=== PATIENT | female | born 1930 | race African-American/Black ===

== ENCOUNTER 2016-11-10 01:05 | Inpatient (IN) | payer MEDICARE ==
[~2016-11-10] VITALS: Ht 165.1 cm; Wt 85.0 kg
[2016-11-10] VITALS (18 sets, daily range): BP systolic 140–262; BP diastolic 65–126; PULSE 48–97; RESP 16–20; TEMP 97.6–99; O2SAT 95–100
[~2016-11-10 01:05] MED LIST: ADAL60TA9 PO; HYDR-2768 PO; K-TA10TA5 PO; LEVO100T60 PO; LISI-357 PO; METO100T PO; PRAV20TA67 PO; PRED20 PO; TAB-TAB PO; VITA100018 PO; ZITH500T PO
[2016-11-10] MEDS ORDERED: HYDR25TA5 PO (01:24)
[2016-11-10] MEDS ORDERED: LEVO.125 PO (01:24)
[2016-11-10] MEDS ORDERED: POTA1TAB4 PO (01:24)
[2016-11-10] MEDS ORDERED: LISI40TA PO (01:24)
[2016-11-10] MEDS ORDERED: METO100T PO (01:24)
[2016-11-10] MEDS ORDERED: PRAV40TA2 PO (01:24)
--- NOTE | 2016-11-10 01:36 | PD ---
HPI Chief Complaint: Hypertension Time Seen by Provider: 01:27 Travel History International Travel<30 days: No Contact w/Intl Traveler<30days: No Traveled to known affect area: No History of Present Illness HPI 86-year-old female here for evaluation of elevated blood pressure. The patient has history of hypertension and is on metoprolol, hydrochlorothiazide, and lisinopril. She was recently started on nifedipine, however she states that this medication made her nauseous and she stopped taking it. She happened to check her blood pressure this evening and noticed it was elevated. She is completely asymptomatic. No chest pain or dyspnea. No headache. No paresthesias or motor deficits. PFSH Past Medical History Anemia: Yes Arthritis: Yes Atrial Fibrillation: Yes Heart Rhythm Problems: Yes (A FIB) Cardiovascular Problems: Yes (HTN) High Cholesterol: Yes Diminished Hearing: No Hypertension: Yes Thyroid Disease: Yes (HYPERTHYROIDISM-GRAVES) Tetanus Vaccination: < 5 Years Influenza Vaccination: No PNEUMOCCOCAL Vaccine (Year): 2010 Menopausal: Yes Past Surgical History Abdominal Surgery: Yes (GALLBLADDER 1994) Cholecystectomy: Yes Social History Alcohol Use: No Tobacco Use: No Substance Use: No Allergies-Medications (Allergen,Severity, Reaction): Coded Allergies: Aspirin (Verified Allergy, Severe, CHEST PAIN, 11/10/16) Sulfa (Verified Allergy, Severe, RASH, 11/10/16) Penicillin (Verified Adverse Reaction, Severe, DIARRHEA, 11/10/16) Uncoded Allergies: CITRUS (Allergy, Severe, Anaphylaxis, 11/23/10) Reported Meds & Prescriptions Reported Meds & Active Scripts Active Reported Metoprolol Tartrate 100 Mg Tab 100 Mg PO BID Hydrochlorothiazide 25 Mg Tab 25 Mg PO DAILY Lisinopril 40 Mg Tab 40 Mg PO DAILY K-Tab (Potassium Chloride) 20 Meq Tab 20 Meq PO BID Pravastatin 40 Mg Tab 40 Mg PO DAILY Synthroid (Levothyroxine Sodium) 125 Mcg Tab 125 Mcg PO DAILY Review of Systems Except as stated in HPI: all other systems reviewed are Neg Physical Exam Narrative GENERAL: Pleasant, well-developed, well-nourished, comfortable, no acute distress. SKIN: Warm and dry. No rash. HEAD: Atraumatic. Normocephalic. EYES: Pupils equal and round. No scleral icterus. No injection or drainage. ENT: Mucous membranes pink and moist. NECK: Trachea midline. No JVD. CARDIOVASCULAR: Bradycardic, rate 50, regular. RESPIRATORY: No accessory muscle use. Clear to auscultation. Breath sounds equal bilaterally. GASTROINTESTINAL: Abdomen soft, non-tender, nondistended. MUSCULOSKELETAL: No obvious deformities. No clubbing. No cyanosis. No edema. NEUROLOGICAL: Awake and alert. No obvious cranial nerve deficits. Motor grossly within normal limits. Normal speech. No focal deficits. PSYCHIATRIC: Appropriate mood and affect; insight and judgment normal. Data Data Last Documented VS Vital Signs Date Time Temp Pulse Resp B/P Pulse Ox O2 Delivery O2 Flow Rate FiO2 11/10/16 02:22 52 18 184/83 100 Room Air 11/10/16 02:03 98.7 Orders Basic Metabolic Panel (Bmp) (11/10/16 01:32) Complete Blood Count With Diff (11/10/16 01:32) Iv Access Insert/Monitor (11/10/16 01:32) Ecg Monitoring (11/10/16 01:32) Oximetry (11/10/16 01:32) Sodium Chloride 0.9% Flush (Ns Flush) (11/10/16 01:45) Hydralazine Inj (Apresoline Inj) (11/10/16 01:45) Sodium Chlorid 0.9% 500 Ml Inj (Ns 500 M (11/10/16 02:45) Sodium Chlor 0.9% 1000 Ml Inj (Ns 1000 M (11/10/16 02:43) Labs Laboratory Tests Test 11/10/16 01:40 White Blood Count 6.2 TH/MM3 Red Blood Count 4.04 MIL/MM3 Hemoglobin 11.5 GM/DL Hematocrit 34.4 % Mean Corpuscular Volume 85.1 FL Mean Corpuscular Hemoglobin 28.4 PG Mean Corpuscular Hemoglobin 33.4 % Concent Red Cell Distribution Width 14.9 % Platelet Count 238 TH/MM3 Mean Platelet Volume 10.0 FL Neutrophils (%) (Auto) 48.9 % Lymphocytes (%) (Auto) 37.6 % Monocytes (%) (Auto) 10.0 % Eosinophils (%) (Auto) 2.7 % Basophils (%) (Auto) 0.8 % Neutrophils # (Auto) 3.0 TH/MM3 Lymphocytes # (Auto) 2.3 TH/MM3 Monocytes # (Auto) 0.6 TH/MM3 Eosinophils # (Auto) 0.2 TH/MM3 Basophils # (Auto) 0.1 TH/MM3 CBC Comment DIFF FINAL Differential Comment Sodium Level 139 MEQ/L Potassium Level 3.5 MEQ/L Chloride Level 104 MEQ/L Carbon Dioxide Level 29.0 MEQ/L Anion Gap 6 MEQ/L Blood Urea Nitrogen 27 MG/DL Creatinine 2.95 MG/DL Estimat Glomerular Filtration 18 ML/MIN Rate Random Glucose 97 MG/DL Calcium Level 9.0 MG/DL MDM Medical Decision Making Medical Screen Exam Complete: Yes Emergency Medical Condition: Yes Medical Record Reviewed: Yes Differential Diagnosis Hypertensive urgency, hypertensive crisis, uncontrolled blood pressure Narrative Course Initial vital signs showed heart rate 48, blood pressure 262/126, pulse ox 95% on room air, oral temp of 98.1F. The patient was given a dose of hydralazine with improvement in blood pressure to 184/83, however blood pressure again increased to 201/90. The patient remains asymptomatic. CBC is remarkable for hemoglobin 11.5, hematocrit 34.4, otherwise unremarkable. BMP is remarkable for BUN 27, creatinine 2.95, GFR 18. The patient is aware of renal insufficiency and states that she is followed by community administrator Dr. Solitario. She does not know her baseline creatinine. The last labs in our system are from 2011 and show BUN 18, creatinine 1.45, GFR 41. The patient was made aware of all findings. Given labile blood pressure as well as apparent acute on chronic renal insufficiency, she'll be admitted for overnight observation and nephrology consultation. Case discussed with [facility] hospitalist Dr. Lezama. The patient will be admitted to their service under Dr. Bonilla. Diagnosis Primary Impression: Uncontrolled hypertension Additional Impression: Acute on chronic renal insufficiency Admitting Information Admitting Physician Requests: Observation Hans Hernandez MD Nov 10, 2016 01:36
[2016-11-10] MEDS ORDERED: SODIUM CHLORIDE 0.9% FLUSH 5 ML FLUSH IVF PRN ×2 (01:45→03:00)
[2016-11-10] MEDS ORDERED: hydrALAZINE HCL 20 MG/ML VIAL IV PUSH ONE ×2 (01:45→12:30)
[2016-11-10 02:05] LABS: BASOPHIL # 0.1 TH/MM3 (0-0.2); BASOPHIL % 0.8 % (0.0-2.0); EOSINOPHIL # 0.2 TH/MM3 (0-0.4); EOSINOPHIL % 2.7 % (0.0-4.0); HEMATOCRIT 34.4 % (35.0-46.0); HEMO FLAGS DIFF FINAL; LYMPH % 37.6 % (9.0-44.0); LYMPHOCYTE # 2.3 TH/MM3 (1.0-4.8); MEAN CELL VOLUME 85.1 FL (80.0-100.0); MEAN CORPUSCULAR HEMOGLOBIN 28.4 PG (27.0-34.0); MEAN CORPUSCULAR HGB CONC 33.4 % (32.0-36.0); NEUT % 48.9 % (16.0-70.0); PLATELET COUNT 238 TH/MM3 (150-450); RED BLOOD COUNT 4.04 MIL/MM3 (4.00-5.30); RED CELL DISTRIBUTION WIDTH 14.9 % (11.6-17.2); WHITE BLOOD COUNT 6.2 TH/MM3 (4.0-11.0)
[2016-11-10 02:26] LABS: POTASSIUM 3.5 MEQ/L (3.5-5.1)
[2016-11-10] MEDS ORDERED: SODIUM CHLOR 0.9% 1000 ML INJ 1,000 ML IV SCH (02:43)
[2016-11-10] MEDS ORDERED: SODIUM CHLORID 0.9% 500 ML INJ 500 ML IV ONE (02:45)
[2016-11-10] MEDS: SODIUM CHLORIDE 0.9% FLUSH 5 ML FLUSH IVF SCH ×2 (09:13→20:44)
[2016-11-10] MEDS ORDERED: ENALAPRILAT 1.25 MG/ML VIAL IV PUSH PRN (12:30)
[2016-11-10] MEDS: cloNIDine HCL 0.1 MG TAB PO PRN (13:38)
--- NOTE | 2016-11-10 13:54 | HHI.HP ---
HPI Service [facility] Hospitalists Primary Care Physician Anton Reyes M.D. Admission Diagnosis uncontrolled hypertension, acute on chronic renal insufficiency Chief Complaint: Elevated BP Travel History International Travel<30 Days: No Contact w/Intl Traveler <30 Da: No Traveled to Known Affected Are: No History of Present Illness Ms. Perez is a pleasant 86 y/o female with HTN, Diabetes, CKD, stage IV, and hypothyroidism. She [place] [facility] [place] for evaluation of elevated blood pressure. The patient takes Metoprolol 100mg po BID, HCTZ 25mg po daily, and Lisinopril 40mg po daily. She was recently started on Nifedipine , however she states that this medication made her nauseous and she stopped taking it. Yesterday evening the pt happened to check her blood pressure and noticed it was elevated. Her vital signs on arrival showed heart rate 48, blood pressure 262/126, pulse ox 95% on room air, oral temp of 98.1F. The patient was given a dose of hydralazine with improvement in blood pressure to 184/83, however blood pressure again increased to 201/90. Pt was admitted for observation for her persistently elevated BP. There was also concern about possible acute on chronic renal failure. Pts baseline Cr is 2.49. At admission her Cr was 2.95. She has been completely asymptomatic. Denies any chest pain, palpitations, headache, dizziness, or SOB. Review of Systems Constitutional: DENIES: Fever, Chills, Dizziness Respiratory: DENIES: Shortness of breath Cardiovascular: DENIES: Chest pain, Palpitations, Lower Extremity Edema Gastrointestinal: DENIES: Abdominal pain, Nausea, Vomiting Genitourinary: DENIES: Dysuria Musculoskeletal: DENIES: Back pain, Neck pain Integumentary: DENIES: Rash Neurologic: DENIES: Headache, Localized weakness, Paresthesias Past Family Social History Past Medical History Diabetes mellitus Atrial fibrillation CKD, stage 4 Chronic anemia Vitamin B12 deficiency Hypothyroidism s/p ablation Past Surgical History Cholecystectomy Thyroid ablation Reported Medications Metoprolol Tartrate 100 Mg PO BID Hydrochlorothiazide 25 Mg PO DAILY Lisinopril 40 Mg PO DAILY K-Tab 20 Meq PO BID Pravastatin 40 Mg PO DAILY Synthroid 125 Mcg PO DAILY Allergies: Coded Allergies: Aspirin (Verified Allergy, Severe, CHEST PAIN, 11/10/16) Sulfa (Verified Allergy, Severe, RASH, 11/10/16) Penicillin (Verified Adverse Reaction, Severe, DIARRHEA, 11/10/16) Uncoded Allergies: CITRUS (Allergy, Severe, Anaphylaxis, 11/23/10) Family History Noncontributory Social History Denies any tobacco, alcohol or illicit drug use Physical Exam Vital Signs Vital Signs Date Time Temp Pulse Resp B/P Pulse Ox O2 Delivery O2 Flow Rate FiO2 11/10/16 12:55 98.0 97 18 97 11/10/16 08:25 50 16 202/94 99 Room Air 11/10/16 06:00 48 18 190/88 100 Room Air 11/10/16 04:39 98.1 49 18 194/91 100 Room Air 11/10/16 04:17 99 21 11/10/16 02:22 52 18 184/83 100 Room Air 11/10/16 02:03 98.7 48 18 201/96 100 Room Air 11/10/16 01:17 48 18 97 Room Air 11/10/16 01:13 98.1 49 20 248/119 11/10/16 01:08 97.6 48 18 262/126 95 Room Air Physical Exam GENERAL: This is a well-nourished, well-developed patient, in no apparent distress. HEENT: Atraumatic. Normocephalic. No temporal or scalp tenderness. No scleral icterus. Airway patent. NECK: Trachea midline, supple, nontender. CARDIO: Regular. RESP: CTA bilaterally. No wheezes, rales, or rhonchi. ABD: +BS, soft, non-tender, nondistended. EXT: Extremities without clubbing, cyanosis, or edema. NEURO: Awake and alert. Motor and sensory grossly within normal limits. Normal speech. Laboratory Laboratory Tests Test 11/10/16 01:40 White Blood Count 6.2 Red Blood Count 4.04 Hemoglobin 11.5 Hematocrit 34.4 Mean Corpuscular Volume 85.1 Mean Corpuscular Hemoglobin 28.4 Mean Corpuscular Hemoglobin 33.4 Concent Red Cell Distribution Width 14.9 Platelet Count 238 Mean Platelet Volume 10.0 Neutrophils (%) (Auto) 48.9 Lymphocytes (%) (Auto) 37.6 Monocytes (%) (Auto) 10.0 Eosinophils (%) (Auto) 2.7 Basophils (%) (Auto) 0.8 Neutrophils # (Auto) 3.0 Lymphocytes # (Auto) 2.3 Monocytes # (Auto) 0.6 Eosinophils # (Auto) 0.2 Basophils # (Auto) 0.1 CBC Comment DIFF FINAL Differential Comment Sodium Level 139 Potassium Level 3.5 Chloride Level 104 Carbon Dioxide Level 29.0 Anion Gap 6 Blood Urea Nitrogen 27 Creatinine 2.95 Estimat Glomerular Filtration 18 Rate Random Glucose 97 Calcium Level 9.0 Result Diagram: 11/10/1613911/10/16139 Septic Shock Reassessment Heart: Regular rate and rhythm Lungs: Clear Skin: Warm Peripheral Pulses: Bounding Right Radial Bounding Left Radial Bounding Right Popliteal Bounding Left Popliteal Bounding Right Dorsalis Pedis Bounding Left Dorsalis Pedis Bounding Right Posterior Tibial Bounding Left Posterior Tibial Assessment and Plan Problem List: (1) Uncontrolled hypertension Status: Acute Plan: - Pt admitted with uncontrolled HTN with systolic BP over 200 - Pt has been given Hydralazine 10mg IV x 2 doses and was just given Clonidine 0.1mg as well. - Pt takes Metoprolol 100mg po BID, Lisinopril 40mg po daily, and HCTZ 25mg po daily at home typically - She has been asymptomatic. - Pt has been notably bradycardic in the ER with HR in the 40-50. Await telemetry and decide about resuming Metoprolol - Hold HCTZ and Lisinopril at this time - Start Hydralazine 10mg po Q8H, first dose at 1800 - Vasotec and Clonidine PRN (2) CKD (chronic kidney disease) stage 4, GFR 15-29 ml/min Status: Chronic Plan: - Pt with stage 4 CKD secondary to diabetes and HTN - Labs at admission are slightly higher than baseline, Cr 2.49 - Encourage oral intake - Monitor (3) Diabetes mellitus type 2, diet-controlled Status: Chronic Plan: - Pt is not on any medications at home. - Low dose NovoLog SSI - Accu checks (4) Hypothyroidism Status: Chronic Plan: - Check TSH/free T4 - Resume home meds (5) Paroxysmal atrial fibrillation Status: Acute Plan: - Pt with a hx of paroxysmal A. fib - Holter Monitor (11/2010) --> NSR, frequent PAC/Occasional PVCs, brief runs of nonsustained atrial tachycardia and sinus bradycardia down to 41 BPM. - Telemetry Assessment and Plan Patient examined. Assessment and plan formulated with Fide Barboza PA-C. I agree with the above. Fide Barboza Nov 10, 2016 13:54 Fabian Bonilla DO Nov 17, 2016 20:44
[2016-11-10] MEDS ORDERED: DEXTROSE 50% IN WATER 50 ML VIAL(D50) IV PUSH PRN (14:30)
[2016-11-10] MEDS ORDERED: GLUCAGON 1 MG/ML VIAL OTHER PRN (14:30)
[2016-11-10 15:02] LABS: FREE T4 1.16 NG/DL (0.76-1.46)
[2016-11-10] MEDS: INSULIN ASPART SUPPLEMENTAL SCALE SQ SCH ×2 (16:00→20:44)
[2016-11-10] MEDS: hydrALAZINE HCL 10 MG TAB PO SCH ×2 (17:03→20:44)
--- NOTE | 2016-11-10 22:44 | EKG ---
Date Performed: 11/10/2016 Time Performed: 00:17:50 PTAGE: 86 years EKG: SINUS BRADYCARDIA MARKED LEFT AXIS DEVIATION PATTERN CONSISTENT WITH PULMONARY DISEASE ABNO RMAL ECG PREVIOUS TRACING : 08/25/2012 13.30 DOCTOR: Joseluis Spencer Interpretating Date/Time 11/10/2016 22:42:11
[2016-11-11] VITALS (13 sets, daily range): BP systolic 128–228; BP diastolic 63–100; PULSE 47–75; RESP 19–20; TEMP 96.3–98.3; O2SAT 95–98
[2016-11-11] MEDS: cloNIDine HCL 0.1 MG TAB PO PRN ×2 (04:08→14:54)
[2016-11-11] MEDS: hydrALAZINE HCL 10 MG TAB PO SCH ×3 (06:37→21:34)
[2016-11-11] MEDS: INSULIN ASPART SUPPLEMENTAL SCALE SQ SCH ×4 (06:37→21:00)
[2016-11-11] MEDS: LEVOTHYROXINE SODIUM 125 MCG TAB PO SCH (06:37)
[2016-11-11 07:06] LABS: BICARBONATE 28.7 MEQ/L (21.0-32.0); MAGNESIUM 2.2 MG/DL (1.5-2.5)
[2016-11-11 07:10] LABS: AUTOMATED NEUTROPHIL # 3.3 TH/MM3 (1.8-7.7); BASOPHIL % 0.6 % (0.0-2.0); EOSINOPHIL # 0.1 TH/MM3 (0-0.4); EOSINOPHIL % 1.4 % (0.0-4.0); HEMATOCRIT 30.4 % (35.0-46.0); HEMO FLAGS DIFF FINAL; LYMPH % 29.2 % (9.0-44.0); LYMPHOCYTE # 1.7 TH/MM3 (1.0-4.8); MEAN CELL VOLUME 85.7 FL (80.0-100.0); MEAN CORPUSCULAR HEMOGLOBIN 28.1 PG (27.0-34.0); MEAN CORPUSCULAR HGB CONC 32.8 % (32.0-36.0); MONO % 12.6 % (0.0-8.0); NEUT % 56.2 % (16.0-70.0); PLATELET COUNT 173 TH/MM3 (150-450); RED BLOOD COUNT 3.55 MIL/MM3 (4.00-5.30); RED CELL DISTRIBUTION WIDTH 14.8 % (11.6-17.2); WHITE BLOOD COUNT 5.9 TH/MM3 (4.0-11.0)
[2016-11-11 07:27] LABS: POTASSIUM 2.8 MEQ/L (3.5-5.1)
[2016-11-11] MEDS ORDERED: POTASSIUM CHLORIDE 20 MEQ CONTROLLED RELEASE TAB PO ONE (07:45)
[2016-11-11] MEDS: SODIUM CHLORIDE 0.9% FLUSH 5 ML FLUSH IVF SCH (08:09)
[2016-11-11] MEDS: PRAVASTATIN SOD 40 MG TAB PO SCH (08:10)
--- NOTE | 2016-11-11 10:43 | HHI.PR ---
Subjective Remarks Pt reports that she slept well last night No new complaints Denies any dizziness or headache BP is still quite elevated Objective Vitals Vital Signs Date Time Temp Pulse Resp B/P Pulse Ox O2 Delivery O2 Flow Rate FiO2 11/11/16 09:15 47 11/11/16 08:19 98 21 11/11/16 06:26 189/85 11/11/16 03:40 97.9 54 20 190/91 96 11/11/16 00:19 98.2 49 19 175/84 96 11/10/16 20:00 54 11/10/16 19:30 98.4 53 19 140/65 96 11/10/16 18:22 53 11/10/16 18:03 54 149/67 11/10/16 15:45 51 11/10/16 15:44 190/84 11/10/16 14:53 99.0 51 18 181/81 98 11/10/16 13:55 51 207/93 11/10/16 13:47 51 18 224/96 11/10/16 12:55 98.0 97 18 97 Result Diagram: 11/11/16 0550 11/11/16 0550 Other Results Laboratory Tests Test 11/10/16 11/11/16 01:40 05:50 White Blood Count 6.2 TH/MM3 5.9 TH/MM3 Red Blood Count 4.04 MIL/MM3 3.55 MIL/MM3 Hemoglobin 11.5 GM/DL 10.0 GM/DL Hematocrit 34.4 % 30.4 % Mean Corpuscular Volume 85.1 FL 85.7 FL Mean Corpuscular Hemoglobin 28.4 PG 28.1 PG Mean Corpuscular Hemoglobin 33.4 % 32.8 % Concent Red Cell Distribution Width 14.9 % 14.8 % Platelet Count 238 TH/MM3 173 TH/MM3 Mean Platelet Volume 10.0 FL 9.3 FL Neutrophils (%) (Auto) 48.9 % 56.2 % Lymphocytes (%) (Auto) 37.6 % 29.2 % Monocytes (%) (Auto) 10.0 % 12.6 % Eosinophils (%) (Auto) 2.7 % 1.4 % Basophils (%) (Auto) 0.8 % 0.6 % Neutrophils # (Auto) 3.0 TH/MM3 3.3 TH/MM3 Lymphocytes # (Auto) 2.3 TH/MM3 1.7 TH/MM3 Monocytes # (Auto) 0.6 TH/MM3 0.7 TH/MM3 Eosinophils # (Auto) 0.2 TH/MM3 0.1 TH/MM3 Basophils # (Auto) 0.1 TH/MM3 0.0 TH/MM3 CBC Comment DIFF FINAL DIFF FINAL Differential Comment Sodium Level 139 MEQ/L 143 MEQ/L Potassium Level 3.5 MEQ/L 2.8 MEQ/L Chloride Level 104 MEQ/L 106 MEQ/L Carbon Dioxide Level 29.0 MEQ/L 28.7 MEQ/L Anion Gap 6 MEQ/L 8 MEQ/L Blood Urea Nitrogen 27 MG/DL 25 MG/DL Creatinine 2.95 MG/DL 2.81 MG/DL Estimat Glomerular Filtration 18 ML/MIN 19 ML/MIN Rate Random Glucose 97 MG/DL 93 MG/DL Calcium Level 9.0 MG/DL 8.4 MG/DL Free Thyroxine 1.16 NG/DL Thyroid Stimulating Hormone 4.120 uIU/ML 3rd Gen Magnesium Level 2.2 MG/DL Objective Remarks General: NAD, AAOx3 Chest: CTA bilaterally Cardiac: Bradycardic, regular Abd: +BS, soft ND/NT Ext: No edema A/P Problem List: (1) Uncontrolled hypertension Status: Acute Plan: - Pt admitted with uncontrolled HTN with systolic BP over 200 - Pt takes Metoprolol 100mg po BID, Lisinopril 40mg po daily, and HCTZ 25mg po daily at home typically - She has been asymptomatic. - Pt has been notably bradycardic in the ER with HR in the 40-50. Metoprolol held - Hold HCTZ and Lisinopril at this time due to worsening renal function from baseline - Pt was started on Hydralazine 10mg po Q8H - Vasotec and Clonidine PRN - Pt still with continued elevated BP over 180 systolic this morning - Increase Hydralazine to 20mg Q8H and add Clonidine patch - Pt noted to have continued bradycardia on telemetry with intermittent tachycardia. - Place Holter monitor - Consult Cardiology - Make pt full admission and transfer (2) CKD (chronic kidney disease) stage 4, GFR 15-29 ml/min Status: Chronic Plan: - Pt with stage 4 CKD secondary to diabetes and HTN - Labs at admission are slightly higher than baseline, Cr 2.49 - Cr 2.81 today - Encourage oral intake - Monitor (3) Diabetes mellitus type 2, diet-controlled Status: Chronic Plan: - Pt is not on any medications at home. - Low dose NovoLog SSI - Accu checks (4) Hypothyroidism Status: Chronic Plan: - TSH 4.12/free T4 1.16 - Cont. home meds (5) Paroxysmal atrial fibrillation Status: Acute Plan: - Pt with a hx of paroxysmal A. fib after thyroid surgery - Holter Monitor (11/2010) --> NSR, frequent PAC/Occasional PVCs, brief runs of nonsustained atrial tachycardia and sinus bradycardia down to 41 BPM. - Telemetry Assessment and Plan Patient examined. Assessment and plan formulated with Fide Barboza PA-C. I agree with the above. Fide Barboza Nov 11, 2016 10:43 Fabian Bonilla DO Nov 17, 2016 20:44
[2016-11-11] MEDS ORDERED: cloNIDine HCL 0.3 MG/24 HR PATCH TD SCH (11:00)
[2016-11-11] MEDS: POTASSIUM CHLORIDE 20 MEQ CONTROLLED RELEASE TAB PO SCH ×2 (14:54→16:00)
[2016-11-11] MEDS ORDERED: hydrALAZINE HCL 20 MG/ML VIAL IV PUSH PRN (17:15)
[2016-11-11] MEDS: amLODIPine BESYLATE 5 MG TAB PO SCH (17:47)
--- NOTE | 2016-11-11 20:32 | MB ---
cc: HARIS FARRIS M.D., VINCENT G. DO CARRATT, EVAN D. M.D. DATE OF CONSULTATION: 11/11/2016. REASON FOR CONSULTATION: Uncontrolled hypertension, possible tachybrady syndrome. PRIMARY CARE PHYSICIAN: Dr. Anton Farris. HISTORY OF PRESENT ILLNESS: Aminta Perez is a pleasant 86-year-old female who presented to the [facility] Emergency Room on November 09, 2016 for evaluation for elevated blood pressure. She states that her blood pressure has been extensively high in the past and her primary care doctor was changing some of her medications. He started her on nifedipine, which made her nauseous, so she stopped taking it. The night before presenting to the emergency room, she checked her blood pressure and noticed it was elevated and felt that she should come into the emergency room for evaluation of this. On speaking to her, she states that she does not get chest pain, shortness of breath, lightheadedness or syncopal episodes. It was also noted by Dr. Bonilla that on telemetry she has episodes of tachyarrhythmia which appear to be short runs of atrial fibrillation in-between episodes of bradycardia with heart rates in the 50s. 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 I was asked to evaluate the patient for possible permanent pacemaker as well as her uncontrolled hypertension. PAST MEDICAL HISTORY: 1. Diabetes mellitus. 2. 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 3. Chronic kidney disease stage IV 4. Chronic anemia. 5. Vitamin B12 deficiency. 6. Hypothyroidism. PAST SURGICAL HISTORY: 1. Cholecystectomy. 2. Thyroid ablation. ALLERGIES: 1. ASPIRIN. 2. SULFA. 3. PENICILLIN. MEDICATIONS: 1. Metoprolol tartrate 100 milligrams twice a day. 2. Hydrochlorothiazide 25 milligrams daily. 3. Lisinopril 40 milligrams daily. 4. Potassium 20 milliequivalents twice a day. 5. Pravastatin 40 milligrams daily. 6. Synthroid 125 micrograms daily. 7. Previously started on nifedipine at an unknown dose for which the patient said this made her nauseous and is no longer taking. FAMILY HISTORY: Denies premature coronary artery disease or sudden cardiac within the family. SOCIAL HISTORY: Denies tobacco abuse, alcohol or drug abuse. REVIEW OF SYSTEMS Fourteen systems were reviewed including osteopathic with pertinent positives and negatives as above; otherwise negative. PHYSICAL EXAMINATION VITAL SIGNS: Temperature 96.8, heart rate 47, blood pressure 142/77, respirations 98% on room air. GENERAL: In general the patient appears well and in no acute distress. Awake, alert and oriented times three. HEENT: Extraocular muscles intact. Mucous membranes moist. NECK: The neck is supple. No JVD at 45 degrees. No carotid bruits heard bilaterally. Carotid upstroke is brisk in nature. HEART: Bradycardic but regular rhythm. Mid-peaking crescendo / decrescendo murmur 2/6 to the right sternal border. LUNGS: Clear to auscultation bilaterally. No wheezes, rales or rhonchi. ABDOMEN: Soft, nontender, nondistended. No organomegaly noted. EXTREMITIES: Trace edema bilaterally. Femoral and distal pulses are intact bilaterally. NEUROLOGIC: No focal deficits. SKIN: Warm, dry and intact. OSTEOPATHIC: Osteopathically, mild lordosis, no kyphoscoliosis, or paraspinal tender points. LAB WORK: Hemoglobin 10.0, hematocrit 30.4, platelets 173,000. Potassium 2.8, BUN 25, creatinine 2.81. TSH 4.12, free T4 1.16. Electrocardiogram (November 10, 2016 at 1750): Sinus bradycardia, left axis deviation, probable left ventricular hypertrophy with secondary S-T-T wave changes. IMPRESSION: 1. Uncontrolled hypertension. 2. Chronic kidney disease stage IV with possible acute kidney injury. 3. 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 4. Hypokalemia. 5. Anemia. 6. Hypothyroidism. 7. Type 2 diabetes mellitus, diet-controlled. RECOMMENDATIONS: 1. Ms. Perez originally came in with a blood pressure of 262/126 and has since been worked down below 180/90. I agree with stopping her lisinopril and hydrochlorothiazide due to her possible acute kidney injury. 2. I would continue to increase her hydralazine as possible to help with blood pressure. 3. We may we may need to avoid clonidine as much as we can as this has been shown to possibly cause bradycardia. 4. Agree with replacing electrolytes as hypokalemia can cause bradycardia. 5. Will check a 2-D echo which will most likely show aortic stenosis and left ventricular hypertrophy, but we will also look at her left ventricular function, cardiac structure and possible other valvulopathies. 6. I spoke to her extensively about a permanent pacemaker, and at this time she does not feel that she would like one, but is willing to listen to our electrophysiology physician, Dr. Spencer, about consideration. 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 Further recommendations will be made based on the hospital course. Thank you for allowing me to see Aminta Perez. If there are any questions, please do not hesitate to call. Raimundo Adam DO JOHN/FANY /4:54 PM /8:14 PM
[2016-11-12] VITALS (9 sets, daily range): BP systolic 118–181; BP diastolic 58–85; PULSE 51–88; RESP 18–20; TEMP 97–98.2; O2SAT 96–98
[2016-11-12] MEDS: hydrALAZINE HCL 10 MG TAB PO SCH ×4 (01:01→21:34)
[2016-11-12] MEDS: SODIUM CHLORIDE 0.9% FLUSH 5 ML FLUSH IVF SCH ×3 (01:02→21:00)
[2016-11-12] MEDS: LEVOTHYROXINE SODIUM 125 MCG TAB PO SCH (06:20)
[2016-11-12] MEDS: INSULIN ASPART SUPPLEMENTAL SCALE SQ SCH ×4 (06:20→21:00)
[2016-11-12 08:52] LABS: BICARBONATE 24.6 MEQ/L (21.0-32.0); MAGNESIUM 2.2 MG/DL (1.5-2.5); POTASSIUM 3.4 MEQ/L (3.5-5.1)
[2016-11-12] MEDS: PRAVASTATIN SOD 40 MG TAB PO SCH (09:00)
[2016-11-12] MEDS: amLODIPine BESYLATE 5 MG TAB PO SCH (09:12)
--- NOTE | 2016-11-12 12:55 | HHI.PR ---
Subjective Remarks No new clinical complaints. Objective Vitals Vital Signs Date Time Temp Pulse Resp B/P Pulse Ox O2 Delivery O2 Flow Rate FiO2 11/12/16 12:12 98.2 66 18 118/58 96 11/12/16 08:37 97.0 88 18 134/74 98 11/12/16 06:16 181/80 11/12/16 04:02 97.5 56 20 134/66 96 11/12/16 00:41 98.2 60 20 169/79 96 11/11/16 19:55 59 11/11/16 19:19 98.3 58 20 128/65 95 11/11/16 16:23 142/77 11/11/16 16:00 97.0 65 20 228/100 97 11/11/16 14:45 188/96 Result Diagram: 11/11/16 0550 11/12/16 0730 Objective Remarks General: NAD, AAOx3 Chest: CTA bilaterally Cardiac: Bradycardic, regular Abd: +BS, soft ND/NT Ext: No edema A/P Problem List: (1) Uncontrolled hypertension Status: Acute Plan: - comgmt with Cardiology - Pt admitted with uncontrolled HTN with systolic BP over 200 - Pt takes Metoprolol 100mg po BID, Lisinopril 40mg po daily, and HCTZ 25mg po daily at home typically - She has been asymptomatic. - Pt has been notably bradycardic in the ER with HR in the 40-50. Metoprolol held - Hold HCTZ and Lisinopril at this time due to worsening renal function from baseline - hydralazine 20mg q8h - norvasc 5mg daily - telemetry: HR NSR 60-80, improved from admission - await holter - anticipate d/c to home in next 1-2 days (2) CKD (chronic kidney disease) stage 4, GFR 15-29 ml/min Status: Chronic Plan: - Pt with stage 4 CKD secondary to diabetes and HTN - Labs at admission are slightly higher than baseline, Cr 2.49 - Cr 2.81 (11/11/16), Cr 3.08 (11/12/16) - obtain Renal US - trial of IVFs - repeat BMP in AM - Pt follows with Dr. Solitario (3) Diabetes mellitus type 2, diet-controlled Status: Chronic Plan: - Pt is not on any medications at home. - Low dose NovoLog SSI - Accu checks - all blood sugar readings are less than 150 - will stopp accu checks (4) Hypothyroidism Status: Chronic Plan: - TSH 4.12/free T4 1.16 - Cont. home meds (5) Paroxysmal atrial fibrillation Status: Acute Plan: - Pt with a hx of paroxysmal A. fib after thyroid surgery - Holter Monitor (11/2010) --> NSR, frequent PAC/Occasional PVCs, brief runs of nonsustained atrial tachycardia and sinus bradycardia down to 41 BPM. - Telemetry Fabian Bonilla DO Nov 12, 2016 12:55 Fabian Bonilla DO Nov 12, 2016 12:55
--- NOTE | 2016-11-12 13:26 | RADRPT ---
EXAM DATE/TIME: 11/12/2016 13:01 [facility] COMPARISON: CHEST SINGLE AP, August 25, 2012, 5:53. INDICATIONS : Cough. MEDICAL HISTORY : None. SURGICAL HISTORY : None. ENCOUNTER: Initial ACUITY: 2 days PAIN SCORE: 0/10 LOCATION: Bilateral chest FINDINGS: Portable AP view of the chest demonstrates mildly enlarged cardiac silhouette with tortuous descendin g aorta. No effusion, consolidation, or pneumothorax is visualized. The bones and soft tissues demons trate no acute abnormality. CONCLUSION: Stable chest x-ray. No acute finding is identified. Rolando Peace MD on November 12, 2016 at 13:24 Board Certified Radiologist. This report was verified electronically.
[2016-11-12] MEDS: 1/2 NS + KCL 20 MEQ INJ 1,000 ML IV SCH (14:10)
--- NOTE | 2016-11-12 15:30 | RADRPT ---
EXAM DATE/TIME: 11/12/2016 14:34 [facility] COMPARISON: No previous studies available for comparison. INDICATIONS : Increased BUN and creatinine. MEDICAL HISTORY : Hyperthyroidism. Hypercholesterolemia. Arthritis. Grave's disease. Dizziness. Hypertension. A-fib. Diabetes. Anemia. SURGICAL HISTORY : Cholecystectomy. ENCOUNTER: Initial ACUITY: 1 day PAIN SCORE: 0/10 LOCATION: Bilateral flank. MEASUREMENTS: RIGHT KIDNEY: 8.2 x 4.0 x 4.0 cm LEFT KIDNEY: 9.2 x 3.8 x 3.5 cm FINDINGS: Both kidneys appear small and echogenic. There is a 1.5 cm cyst seen at the upper right kidney. No hydronephrosis is identified. The bladder is decompressed. CONCLUSION: Small echogenic kidneys consistent with medical renal disease. Rolando Pettit MD on November 12, 2016 at 15:07 Board Certified Radiologist. This report was verified electronically.
--- NOTE | 2016-11-12 19:27 | PD.CARD.PN ---
Subjective Subjective Remarks No chest pain, no shortness of breath Objective Medications Current Medications Medications (Trade) Dose Ordered Sig/Kirby Route Start Time Stop Time Status Last Admin (NS Flush) 2 ml UNSCH PRN IVF 11/10/16 01:45 11/10/16 13:38 (NS Flush) 2 ml BID IVF 11/10/16 09:00 11/12/16 09:11 (NS Flush) 2 ml UNSCH PRN IVF 11/10/16 03:00 (Catapres) 0.1 mg Q6H PRN PO 11/10/16 12:30 11/11/16 14:54 (Vasotec Inj) 1.25 mg Q6H PRN IV PUSH 11/10/16 12:30 11/10/16 17:03 (Synthroid) 125 mcg DAILY@06 PO 11/11/16 06:00 11/12/16 06:20 (Pravachol) 40 mg DAILY PO 11/11/16 09:00 11/12/16 09:00 (D50w (Vial) Inj) 25 ml UNSCH PRN IV PUSH 11/10/16 14:30 (Glucagon Inj) 1 mg UNSCH PRN OTHER 11/10/16 14:30 (Apresoline) 20 mg Q8HR PO 11/11/16 14:00 11/12/16 14:09 Miscellaneous Information 1 Q7D T-DERMAL 11/18/16 10:00 (Norvasc) 5 mg DAILY PO 11/11/16 18:00 11/12/16 09:12 Hydralazine HCl 10 mg 10 mg Q4H PRN IV PUSH 11/11/16 17:15 (12 NS + KCl 20 Meq Inj) 1,000 ml @ 84 mls/hr [id number] IV 11/12/16 13:00 11/12/16 14:10 Vital Signs / I&O Vital Signs Date Time Temp Pulse Resp B/P Pulse Ox O2 Delivery O2 Flow Rate FiO2 11/12/16 18:40 51 11/12/16 15:45 97.9 63 18 144/68 96 11/12/16 12:12 98.2 66 18 118/58 96 11/12/16 08:37 97.0 88 18 134/74 98 11/12/16 06:16 181/80 11/12/16 04:02 97.5 56 20 134/66 96 11/12/16 00:41 98.2 60 20 169/79 96 11/11/16 19:55 59 Physical Exam GENERAL: NAD, AAOx3 SKIN: Warm and dry. HEAD: Atraumatic. Normocephalic. EYES: Pupils equal and round. No scleral icterus. No injection or drainage. ENT: No nasal bleeding or discharge. Mucous membranes pink and moist. NECK: Trachea midline. No JVD. CARDIOVASCULAR: Regular rate and rhythm. 2/6 mid-peaking crescendo-decrescendo RESPIRATORY: No accessory muscle use. Clear to auscultation. Breath sounds equal bilaterally. GASTROINTESTINAL: Abdomen soft, non-tender, nondistended. Hepatic and splenic margins not palpable. MUSCULOSKELETAL: Extremities without clubbing, cyanosis, or edema. No obvious deformities. NEUROLOGICAL: Awake and alert. No obvious cranial nerve deficits. Motor grossly within normal limits. Five out of 5 muscle strength in the arms and legs. Normal speech. PSYCHIATRIC: Appropriate mood and affect; insight and judgment normal. Laboratory Laboratory Tests Test 11/12/16 07:30 Sodium Level 140 MEQ/L Potassium Level 3.4 MEQ/L Chloride Level 106 MEQ/L Carbon Dioxide Level 24.6 MEQ/L Anion Gap 9 MEQ/L Blood Urea Nitrogen 27 MG/DL Creatinine 3.08 MG/DL Estimat Glomerular Filtration 17 ML/MIN Rate Random Glucose 75 MG/DL Calcium Level 8.5 MG/DL Magnesium Level 2.2 MG/DL Assessment and Plan Problem List: (1) Uncontrolled hypertension (2) Acute on chronic renal insufficiency (3) Paroxysmal atrial fibrillation (4) Hypothyroidism (5) Diabetes mellitus type 2, diet-controlled Assessment and Plan 1) Blood pressure better controlled at this time 2) Try to avoid Clonidine as it can cause bradycardia 3) Still some short episodes of possible atrial fibrillation, mostly sinus rhythm/sinus margarita, asymptomatic 4) Will have Dr. Spencer see the patient about tachy-margarita syndrome, although she doesn't think she would like a Raimundo Ruvalcaba DO Nov 12, 2016 19:27
[2016-11-13] VITALS (8 sets, daily range): BP systolic 125–200; BP diastolic 63–103; PULSE 60–108; RESP 18–20; TEMP 97.5–98.3; O2SAT 95–98
[2016-11-13] MEDS: 1/2 NS + KCL 20 MEQ INJ 1,000 ML IV SCH ×3 (00:55→21:59)
[2016-11-13] MEDS: cloNIDine HCL 0.1 MG TAB PO PRN (00:56)
[2016-11-13 05:15] LABS: AUTOMATED NEUTROPHIL # 3.4 TH/MM3 (1.8-7.7); BASOPHIL % 0.7 % (0.0-2.0); EOSINOPHIL # 0.3 TH/MM3 (0-0.4); EOSINOPHIL % 4.1 % (0.0-4.0); HEMATOCRIT 33.3 % (35.0-46.0); HEMO FLAGS DIFF FINAL; LYMPH % 33.3 % (9.0-44.0); LYMPHOCYTE # 2.3 TH/MM3 (1.0-4.8); MEAN CELL VOLUME 85.7 FL (80.0-100.0); MEAN CORPUSCULAR HEMOGLOBIN 27.8 PG (27.0-34.0); MEAN CORPUSCULAR HGB CONC 32.4 % (32.0-36.0); MONO % 11.2 % (0.0-8.0); NEUT % 50.7 % (16.0-70.0); PLATELET COUNT 195 TH/MM3 (150-450); RED BLOOD COUNT 3.88 MIL/MM3 (4.00-5.30); WHITE BLOOD COUNT 6.8 TH/MM3 (4.0-11.0)
[2016-11-13] MEDS: LEVOTHYROXINE SODIUM 125 MCG TAB PO SCH (05:21)
[2016-11-13] MEDS: hydrALAZINE HCL 10 MG TAB PO SCH ×3 (05:21→21:59)
[2016-11-13 05:40] LABS: BICARBONATE 23.8 MEQ/L (21.0-32.0); MAGNESIUM 2.2 MG/DL (1.5-2.5); POTASSIUM 3.4 MEQ/L (3.5-5.1)
[2016-11-13] MEDS: INSULIN ASPART SUPPLEMENTAL SCALE SQ SCH (07:00)
--- NOTE | 2016-11-13 07:02 | MB ---
cc: GAYLE COLBERT MD DATE OF CONSULTATION 11/12/2016 REASON FOR CONSULTATION Acute on chronic kidney disease Stage IV. HISTORY OF PRESENT ILLNESS This is an 86-year-old female with a history of hypertension and CKD Stage IV with hypothyroidism. The patient follows up with Dr. Ada Solitario for her renal issues and last saw him apparently in August. At that time she was told her kidney function was low; however, there was no discussion of dialysis at that point. The patient apparently has a baseline creatinine near 2.49; however, this was obtained from the history in the chart. There are no recent creatinine values available here. The patient was admitted on November 09 for evaluation of hypertension. The patient takes her blood pressure at home and at home she had been taking metoprolol 100 b.i.d., hydrochlorothiazide 25 daily and lisinopril 40 mg daily. She presented with a blood pressure of 260/120, over the last several days she has been managed by the hospitalist service and her blood pressure significantly improved to a level between the 130s and 140s systolic and 50s to 60s diastolic. She reports she is feeling fine at this point has no acute complaints. 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 She was seen by Cardiology and a pacemaker was suggested. However, the patient is refusing pacemaker placement at this time and reports she has friends who have had trouble with theirs in the past. Regarding her renal function, her creatinine upon presentation here was 2.8 and it to a level of 3.0. Given the rise in creatinine, IV fluids were started today with one-half normal saline plus 40 mEq of potassium chloride at 40 cc/hour. At this point the patient is receiving IV fluids and Nephrology was consulted for further evaluation. She reports she is feeling fine otherwise with no acute complaints. REVIEW OF SYSTEMS No chest pains. No shortness of breath. No diarrhea. No constipation. No nausea or vomiting, no diarrhea. No dizziness or loss of consciousness. Otherwise review of systems is negative. PAST MEDICAL HISTORY 1. CKD Stage IV followed up with Dr. Solitario. 2. Atrial fibrillation. 3. Hypertension. 4. Anemia. 5. Vitamin B12 deficiency. 6. Hypothyroidism with history of ablation. SURGICAL HISTORY 1. Cholecystectomy. 2. Thyroid ablation MEDICATIONS PRIOR TO ADMISSION 1. Metoprolol 100 b.i.d. 2. Hydrochlorothiazide 25 daily. 3. Lisinopril 40 mg daily. 4. Potassium supplements 20 mEq p.o. b.i.d. 5. Pravastatin 40 mg daily. 6. Synthroid 125 mcg daily. ALLERGIES ASPIRIN. SULFA. PENICILLIN. CITRUS ALLERGY. FAMILY HISTORY Noncontributory. SOCIAL HISTORY No alcohol, tobacco or drug use. PHYSICAL EXAMINATION VITAL SIGNS: At time of evaluation, blood pressure 144/68, temperature 97.9, pulse 63, respiratory rate 18, pulse ox 96% on room air. GENERAL: Awake, alert, oriented, in no apparent acute distress. HEENT/NECK: Soft supple. No lymphadenopathy. CARDIAC: Regular rate and rhythm. No murmurs, rubs, gallops. PULMONARY: Lungs clear to auscultation bilaterally. ABDOMEN: Soft, nontender, nondistended. EXTREMITIES: No edema. LABORATORY FINDINGS White count 5.9, hemoglobin 10.0, hematocrit 30.4 with platelet count of 173. Sodium 140, potassium 3.4, chloride 106, bicarb 24.6, BUN 27, creatinine 3.0, glucose of 75. ASSESSMENT AND PLAN 1. Acute kidney injury on CKD Stage IV. The patient has reported baseline creatinine of 2.49 and I am unclear where this came from as it is not available in the hospital labs; however, this was noted from the previous notes. The patient does have a history of CKD Stage IV and she does follow up closely with Dr. Solitario. She apparently last saw him in August and she was told she had severe kidney disease. However, there was no indication for dialysis at that time. At this point the patient is resting comfortably. Her creatinine upon presentation was 2.8 and elevated up to a level of 3.0. I suspect this may be some hemodynamic changes secondary to her blood pressure issues. Her blood pressure is better controlled now. She has been given a trial of IV fluids at this point. There is no signs of any volume overload otherwise. Agree with IV fluids as administered. At this point the patient is on one-half normal saline with 40 mEq of potassium chloride at 40 cc/hour. Continue to monitor for any signs of improvement in renal function. Her creatinine is otherwise stable and there is no indications for any hemodialysis at this point. A renal ultrasound was ordered as well and we will go ahead and check a fractional excretion of sodium to assess for any prerenal versus renal etiologies for acute on chronic kidney disease. In addition, renal ultrasound was ordered for further evaluation. 2. Hypertension. The patient presented with systolic blood pressure in the 260s. Her systolic blood pressure is down to the 130s. She presented with management on a beta boni and LILLIAN inhibitor. She also had findings of apparent tachybrady syndrome with heart rate that dropped to the 40s. At this point, blood pressure management is only with hydralazine and Norvasc. Her blood pressure is significantly improved at this point. Continue with medications at this time and continue to monitor. 3. Hypothyroidism. Continue Synthroid. 4. Anemia. The patient has a hemoglobin of 10, appears stable. Continue to monitor closely. 5. Atrial fibrillation. The patient has a history of paroxysmal atrial fibrillation. 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 She was seen with Cardiology and a pacemaker was offered; however, the patient initially refused this. She is otherwise stable at this point. Continue to monitor. MD ANALISA Martinez/RHONA /6:02 PM /6:38 AM MTDDesiree
--- NOTE | 2016-11-13 08:39 | HHI.PR ---
Subjective Remarks No new complaints. Pts BP still fluctuating quite high but also periods of normal range readings. Pt has been asymptomatic. Denies any chest pain, SOB, palpitations. Objective Vitals Vital Signs Date Time Temp Pulse Resp B/P Pulse Ox O2 Delivery O2 Flow Rate FiO2 11/13/16 05:15 97.6 108 18 170/86 95 11/13/16 00:36 98.2 107 20 200/103 98 11/12/16 21:14 98.2 70 20 147/85 98 11/12/16 20:00 60 11/12/16 18:40 51 11/12/16 15:45 97.9 63 18 144/68 96 11/12/16 12:12 98.2 66 18 118/58 96 11/12/16 08:37 97.0 88 18 134/74 98 Result Diagram: 11/13/16 0457 11/13/16 0457 Other Results Laboratory Tests Test 11/11/16 11/12/16 11/13/16 13:31 07:30 04:57 Potassium Level 3.3 MEQ/L 3.4 MEQ/L 3.4 MEQ/L Sodium Level 140 MEQ/L 140 MEQ/L Chloride Level 106 MEQ/L 107 MEQ/L Carbon Dioxide Level 24.6 MEQ/L 23.8 MEQ/L Anion Gap 9 MEQ/L 9 MEQ/L Blood Urea Nitrogen 27 MG/DL 31 MG/DL Creatinine 3.08 MG/DL 2.99 MG/DL Estimat Glomerular Filtration 17 ML/MIN 18 ML/MIN Rate Random Glucose 75 MG/DL 90 MG/DL Calcium Level 8.5 MG/DL 8.6 MG/DL Magnesium Level 2.2 MG/DL 2.2 MG/DL White Blood Count 6.8 TH/MM3 Red Blood Count 3.88 MIL/MM3 Hemoglobin 10.8 GM/DL Hematocrit 33.3 % Mean Corpuscular Volume 85.7 FL Mean Corpuscular Hemoglobin 27.8 PG Mean Corpuscular Hemoglobin 32.4 % Concent Red Cell Distribution Width 15.0 % Platelet Count 195 TH/MM3 Mean Platelet Volume 9.1 FL Neutrophils (%) (Auto) 50.7 % Lymphocytes (%) (Auto) 33.3 % Monocytes (%) (Auto) 11.2 % Eosinophils (%) (Auto) 4.1 % Basophils (%) (Auto) 0.7 % Neutrophils # (Auto) 3.4 TH/MM3 Lymphocytes # (Auto) 2.3 TH/MM3 Monocytes # (Auto) 0.8 TH/MM3 Eosinophils # (Auto) 0.3 TH/MM3 Basophils # (Auto) 0.0 TH/MM3 CBC Comment DIFF FINAL Differential Comment Imaging Last Impressions Renal Ultrasound 11/12/16 0000 Signed Impressions: Service Date/Time: Saturday, November 12, 2016 14:34 - CONCLUSION: Small echogenic kidneys consistent with medical renal disease. Rolando Pettit MD Chest X-Ray 11/12/16 0000 Signed Impressions: Service Date/Time: Saturday, November 12, 2016 13:01 - CONCLUSION: Stable chest x-ray. No acute finding is identified. Rolando Peace MD Objective Remarks General: NAD, AAOx3 Chest: CTA bilaterally Cardiac: Bradycardic, regular Abd: +BS, soft ND/NT Ext: No edema A/P Problem List: (1) Uncontrolled hypertension Status: Acute Plan: - comgmt with Cardiology - Pt admitted with uncontrolled HTN with systolic BP over 200 - Pt takes Metoprolol 100mg po BID, Lisinopril 40mg po daily, and HCTZ 25mg po daily at home typically - She has been asymptomatic. - Pt has been notably bradycardic in the ER with HR in the 40-50. Metoprolol held - Hold HCTZ and Lisinopril at this time due to worsening renal function from baseline - Cardiology following. - Pt is currently on Hydralazine 20mg q8h and Norvasc 5mg daily but BP is still fluctuating quite high but with periods of normal BPs. - Telemetry: HR NSR 60-80, but periods of tachyarrhythmias - Await Holter - Dr. Spencer consulted - anticipate d/c to home in next 1-2 days (2) CKD (chronic kidney disease) stage 4, GFR 15-29 ml/min Status: Chronic Plan: - Pt with stage 4 CKD secondary to diabetes and HTN - Labs at admission are slightly higher than baseline, Cr 2.49 - Cr 2.81 (11/11/16) --> Cr 3.08 (11/12/16) --> Cr 2.99 (11/13/16) - Renal US --> Small echogenic kidneys consistent with medical renal disease - Trial of IVFs - Repeat BMP in AM - Pt follows with Dr. Solitario (3) Diabetes mellitus type 2, diet-controlled Status: Chronic Plan: - Pt is not on any medications at home. - all blood sugar readings are less than 150 - will stop accuchecks and SSI per pts request (4) Hypothyroidism Status: Chronic Plan: - TSH 4.12/free T4 1.16 - Cont. home meds (5) Paroxysmal atrial fibrillation Status: Acute Plan: - Pt with a hx of paroxysmal A. fib after thyroid surgery - Holter Monitor (11/2010) --> NSR, frequent PAC/Occasional PVCs, brief runs of nonsustained atrial tachycardia and sinus bradycardia down to 41 BPM. - Telemetry Assessment and Plan Patient examined. Assessment and plan formulated with Fide Barboza PA-C. I agree with the above. BP more stable. she is not interested currenlty in pacemaker or dialysis If stable tomorrow then d/c home. I discussed with Dr Spencer who is at bedside and pt refusing consultation for pacemaker so we will cancel it. Fide Barboza Nov 13, 2016 08:39 Jacques Duff MD Nov 13, 2016 19:50
[2016-11-13] MEDS: PRAVASTATIN SOD 40 MG TAB PO SCH (08:51)
[2016-11-13] MEDS: amLODIPine BESYLATE 5 MG TAB PO SCH (08:51)
[2016-11-13] MEDS: SODIUM CHLORIDE 0.9% FLUSH 5 ML FLUSH IVF SCH ×2 (08:51→21:57)
[2016-11-13] MEDS ORDERED: POTASSIUM CHLORIDE 20 MEQ CONTROLLED RELEASE TAB PO ONE (09:00)
[2016-11-13] MEDS ORDERED: POTASSIUM CHLORIDE 10 MEQ CAP PO ONE (14:00)
--- NOTE | 2016-11-13 14:16 | PD.CARD.PN ---
Subjective Subjective Remarks No chest pain, no shortness of breath, up and ambulating Objective Medications Current Medications Medications (Trade) Dose Ordered Sig/Kirby Route Start Time Stop Time Status Last Admin (NS Flush) 2 ml UNSCH PRN IVF 11/10/16 01:45 11/10/16 13:38 (NS Flush) 2 ml BID IVF 11/10/16 09:00 11/12/16 21:00 (NS Flush) 2 ml UNSCH PRN IVF 11/10/16 03:00 (Catapres) 0.1 mg Q6H PRN PO 11/10/16 12:30 11/13/16 00:56 (Vasotec Inj) 1.25 mg Q6H PRN IV PUSH 11/10/16 12:30 11/10/16 17:03 (Synthroid) 125 mcg DAILY@06 PO 11/11/16 06:00 11/13/16 05:21 (Pravachol) 40 mg DAILY PO 11/11/16 09:00 11/13/16 08:51 (D50w (Vial) Inj) 25 ml UNSCH PRN IV PUSH 11/10/16 14:30 (Glucagon Inj) 1 mg UNSCH PRN OTHER 11/10/16 14:30 (Apresoline) 20 mg Q8HR PO 11/11/16 14:00 11/13/16 05:21 Miscellaneous Information 1 Q7D T-DERMAL 11/18/16 10:00 (Norvasc) 5 mg DAILY PO 11/11/16 18:00 11/13/16 08:51 Hydralazine HCl 10 mg 10 mg Q4H PRN IV PUSH 11/11/16 17:15 (12 NS + KCl 20 Meq Inj) 1,000 ml @ 84 mls/hr [id number] IV 11/12/16 13:00 11/13/16 00:55 Vital Signs / I&O Vital Signs Date Time Temp Pulse Resp B/P Pulse Ox O2 Delivery O2 Flow Rate FiO2 11/13/16 12:13 98.3 73 20 135/69 98 11/13/16 10:24 70 11/13/16 08:32 97.9 84 20 125/76 98 11/13/16 05:15 97.6 108 18 170/86 95 11/13/16 00:36 98.2 107 20 200/103 98 11/12/16 21:14 98.2 70 20 147/85 98 11/12/16 20:00 60 11/12/16 18:40 51 11/12/16 15:45 97.9 63 18 144/68 96 Physical Exam GENERAL: NAD, AAOx3 SKIN: Warm and dry. HEAD: Atraumatic. Normocephalic. EYES: Pupils equal and round. No scleral icterus. No injection or drainage. ENT: No nasal bleeding or discharge. Mucous membranes pink and moist. NECK: Trachea midline. No JVD. CARDIOVASCULAR: Regular rate and rhythm. 2/6 mid-peaking crescendo-decrescendo RESPIRATORY: No accessory muscle use. Clear to auscultation. Breath sounds equal bilaterally. GASTROINTESTINAL: Abdomen soft, non-tender, nondistended. Hepatic and splenic margins not palpable. MUSCULOSKELETAL: Extremities without clubbing, cyanosis, or edema. No obvious deformities. NEUROLOGICAL: Awake and alert. No obvious cranial nerve deficits. Motor grossly within normal limits. Five out of 5 muscle strength in the arms and legs. Normal speech. PSYCHIATRIC: Appropriate mood and affect; insight and judgment normal. Laboratory Laboratory Tests Test 11/13/16 04:57 White Blood Count 6.8 TH/MM3 Red Blood Count 3.88 MIL/MM3 Hemoglobin 10.8 GM/DL Hematocrit 33.3 % Mean Corpuscular Volume 85.7 FL Mean Corpuscular Hemoglobin 27.8 PG Mean Corpuscular Hemoglobin 32.4 % Concent Red Cell Distribution Width 15.0 % Platelet Count 195 TH/MM3 Mean Platelet Volume 9.1 FL Neutrophils (%) (Auto) 50.7 % Lymphocytes (%) (Auto) 33.3 % Monocytes (%) (Auto) 11.2 % Eosinophils (%) (Auto) 4.1 % Basophils (%) (Auto) 0.7 % Neutrophils # (Auto) 3.4 TH/MM3 Lymphocytes # (Auto) 2.3 TH/MM3 Monocytes # (Auto) 0.8 TH/MM3 Eosinophils # (Auto) 0.3 TH/MM3 Basophils # (Auto) 0.0 TH/MM3 CBC Comment DIFF FINAL Differential Comment Sodium Level 140 MEQ/L Potassium Level 3.4 MEQ/L Chloride Level 107 MEQ/L Carbon Dioxide Level 23.8 MEQ/L Anion Gap 9 MEQ/L Blood Urea Nitrogen 31 MG/DL Creatinine 2.99 MG/DL Estimat Glomerular Filtration 18 ML/MIN Rate Random Glucose 90 MG/DL Calcium Level 8.6 MG/DL Magnesium Level 2.2 MG/DL Assessment and Plan Problem List: (1) Uncontrolled hypertension (2) Acute on chronic renal insufficiency (3) Paroxysmal atrial fibrillation (4) Hypothyroidism (5) Diabetes mellitus type 2, diet-controlled Assessment and Plan 1) Blood pressure better controlled at this time, still with some elevated episodes... 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
[2016-11-13] MEDS ORDERED: amLODIPine BESYLATE 5 MG TAB PO ONE (14:30)
--- NOTE | 2016-11-13 16:50 | HHI.NPPN ---
Subjective History of Present Illness 86 year old with CKD 4 who has A fib chf Review of Systems General Constitutional: Fatigue Objective Data Data Vital Signs Date Time Temp Pulse Resp B/P Pulse Ox O2 Delivery O2 Flow Rate FiO2 11/13/16 12:13 98.3 73 20 135/69 98 11/13/16 10:24 70 11/13/16 08:32 97.9 84 20 125/76 98 11/13/16 05:15 97.6 108 18 170/86 95 11/13/16 00:36 98.2 107 20 200/103 98 11/12/16 21:14 98.2 70 20 147/85 98 11/12/16 20:00 60 11/12/16 18:40 51 -: 11/13/16 0457 11/13/16456 Physical Exam General Appearance: Well Developed, Well Nourished Neck Neck Exam: Neck Supple Pulmonary Resp Exam: Decreased Bases Cardiology CV Exam: Arrhythmia Gastrointestinal/Abdomen GI Exam: Soft, Non-Tender, Bowel Sounds Present Extremeties Extremities Exam: Trace Edema Assessment/Plan Problem List: (1) CKD (chronic kidney disease) stage 4, GFR 15-29 ml/min Plan: she has advance kidney disease seen in office in September and offered to consider dialysis, she refused to consider and continue to do so follow as out pt once dc diabetes control.HTN Control optimize (2) Paroxysmal atrial fibrillation (3) Diabetes mellitus type 2, diet-controlled (4) Uncontrolled hypertension Ada Solitario MD Nov 13, 2016 16:50
--- NOTE | 2016-11-13 18:46 | HM ---
Date Performed: 11/11/2016 Time Performed: 13:06:00 HOOKUP DATE: 11/11/16 01:06:00 PM Sat ANALYSIS START TIME: 11/11/2016 1:11:00 PM ANALYSIS END TIME: 11/12/2016 1:15:00 PM PATIENT AGE: 86 PATIENT HEIGHT: 65 PATIENT WEIGHT: 187 DRUG LIST PATIENT DIAGNOSIS: HTN TEST NARRATIVE: The patient's average heart rate was 66 BPM. Heart rates greater than 120 B PM were noted < 1% of the time. Heart rates less than 50 BPM were noted 3% of the time. No pause s exceeding 2.0 seconds were noted. 2216 ventricular ectopics, which represented 2% of the total beat count, were noted. The highest ventricular ectopic frequency occurred from 08:00 AM to 09:00 AM Sun. During this time 355 VE(s) occurred. Ventricular ectopics were observed as 2174 isolated beat (s), as 18 couplet(s) and as 2 run(s). 1167 supraventricular ectopics, which represented 1% of th e total beat count, were noted. The highest supraventricular ectopic frequency occurred from 06:00 A M to 07:00 AM Sun. During this time 126 SVE(s) occurred. In channel 1, a single episode of ST de pression (defined as -1.0 mm or more) occurred at 05:25:55 PM Sat with a maximum depression of -1.7 m m. No episodes of ST depression (defined as -1.0 mm or more) were noted in channel 2. No episodes o f ST depression (defined as -1.0 mm or more) were noted in channel 3. No diary events were repor yaritza by the patient. TEST INTERPRETATION: Underlined rhythm is normal sinus. Patient with 2000 PVC's over a 24 hour p eriod and many PAC's. There were several episodes of short runs of supraventricular rhythm which appe ars to be short runs of atrial fibrillation. There were also significant runs of PVC's and supraventr icular rhythm. CONCLUSION: Multiple onsets of PVC's, short runs of nonsustained ventricular tachycard ia, multiple short runs of atrlal fibrillation and also runs of atrial tachycardia. Signed by : Alton Graves
--- NOTE | 2016-11-13 20:06 | EC ---
Study Study Date:11/13/2016 STUDY CONCLUSIONS SUMMARY - Left ventricle: The cavity size was normal. Wall thickness was normal. Systolic function was normal. The estimated ejection fraction was 60%. Wall motion was normal; there were no regional wall motion abnormalities. - Aortic valve: Mildly calcified annulus. Trileaflet; normal thickness leaflets. Trace regurgitation. - Left atrium: The atrium was mildly dilated. If LV function is below 40, please consider prescribing an ACEI or ARB or document rationale for non-use. PROCEDURE DATA STUDY STATUS: Elective. Procedure: Transthoracic echocardiography. Image quality was good. Scanning was performed from the parasternal, apical, and subcostal acoustic windows. Study completion: The patient tolerated the procedure well. Transthoracic echocardiography. M-mode, complete 2D, complete spectral Doppler, and color Doppler. Patient status: Inpatient. CARDIAC ANATOMY LEFT VENTRICLE: The cavity size was normal. Wall thickness was normal. Systolic function was normal. The estimated ejection fraction was 60%. Wall motion was normal; there were no regional wall motion abnormalities. AORTIC VALVE: Mildly calcified annulus. Trileaflet; normal thickness leaflets. Doppler: Transvalvular velocity was within the normal range. There was no stenosis. Trace regurgitation. Valve area: 1.69cm^2 (Vmax). Peak gradient: 20mm Hg (S). AORTA: Aortic root: The aortic root was normal in size. MITRAL VALVE: Structurally normal valve. Doppler: Transvalvular velocity was within the normal range. There was no evidence for stenosis. No regurgitation. Peak gradient: 2mm Hg (D). LEFT ATRIUM: The atrium was mildly dilated. RIGHT VENTRICLE: The cavity size was normal. Wall thickness was normal. PULMONIC VALVE: Doppler: Transvalvular velocity was within the normal range. There was no evidence for stenosis. No regurgitation. TRICUSPID VALVE: Structurally normal valve. Doppler: Transvalvular velocity was within the normal range. Trace regurgitation. PULMONARY ARTERY: The main pulmonary artery was normal-sized. Systolic pressure was within the normal range. RIGHT ATRIUM: The atrium was normal in size. PERICARDIUM: There was no pericardial effusion. SYSTEMIC VEINS: Inferior vena cava: The vessel was normal in size. BASIC MEASUREMENTS ADULT Normal Left ventricle LV internal dimension, ED, chordal level, *37.4 mm 43-52 PLAX LV internal dimension, ES, chordal level, 29.2 mm 23-38 PLAX Fractional shortening, chordal level, PLAX *22 % >29 LV posterior wall thickness, ED 10.8 mm IVS/LVPW ratio, ED 0.83 <1.3 Ventricular septum Septal thickness, ED 8.99 mm Aortic valve Leaflet separation 16 mm 15-26 BASIC MEASUREMENTS ADULT Normal Aortic valve Leaflet separation 16 mm 15-26 Aorta Root diameter, ED 27 mm 20-37 Left atrium Anterior-posterior dimension, ES *46 mm 19-40 LA/aortic root ratio 1.7 DOPPLER MEASUREMENTS ADULT Normal Main pulmonary artery Pressure, S 21 mm Hg =30 Aortic valve Peak velocity, S 221 cm/s Peak gradient, S 20 mm Hg Valve area, Vmax 1.69 cm^2 Regurgitant velocity, ED 305 cm/s Regurgitant deceleration 1100 cm/s^2 Regurgitant pressure half-time 810 ms Regurgitant gradient, ED 37 mm Hg Mitral valve Peak E-wave velocity 77.5 cm/s Peak A-wave velocity 130 cm/s Deceleration time *243 ms 150-230 Peak gradient, D 2 mm Hg Peak E/A ratio 0.6 Tricuspid valve Regurgitant peak velocity 208 cm/s Peak RV-RA gradient, S 17 mm Hg Maximal regurgitant velocity 208 cm/s Systemic veins Estimated CVP 10 mm Hg Right ventricle RV pressure, S 27 mm Hg <30 Pulmonic valve Peak velocity, S 124 cm/s LEGEND: Mean values are shown as u=mean value. Asterisk (*) saucedo values outside specified normal range. Prepared and signed by Russell Simth [id number]
[2016-11-14] VITALS (8 sets, daily range): BP systolic 125–193; BP diastolic 61–100; PULSE 52–115; RESP 17–19; TEMP 97.8–99; O2SAT 97–98
[2016-11-14] MEDS: hydrALAZINE HCL 10 MG TAB PO SCH ×2 (06:07→13:40)
[2016-11-14] MEDS: LEVOTHYROXINE SODIUM 125 MCG TAB PO SCH (06:07)
[2016-11-14 08:01] LABS: BICARBONATE 25.2 MEQ/L (21.0-32.0); POTASSIUM 3.6 MEQ/L (3.5-5.1)
[2016-11-14] MEDS: SODIUM CHLORIDE 0.9% FLUSH 5 ML FLUSH IVF SCH (08:15)
[2016-11-14] MEDS: PRAVASTATIN SOD 40 MG TAB PO SCH (08:16)
--- NOTE | 2016-11-14 11:36 | HHI.PR ---
Subjective Remarks No new complaints. Pt still with periodic tachyarrhythmia and bradycardia on telemetry Pt tolerating diet, she does not eat much normally Objective Vitals Vital Signs Date Time Temp Pulse Resp B/P Pulse Ox O2 Delivery O2 Flow Rate FiO2 11/14/16 10:00 115 175/99 98 11/14/16 08:11 60 17 193/86 97 11/14/16 07:27 60 11/14/16 03:35 97.8 65 18 154/71 97 11/14/16 01:21 99.0 84 18 132/74 97 11/13/16 21:57 98.1 68 18 134/63 98 11/13/16 21:20 60 11/13/16 16:00 97.5 70 18 153/99 98 11/13/16 12:13 98.3 73 20 135/69 98 Result Diagram: 11/13/16 0457 11/14/16 0605 Other Results Laboratory Tests Test 11/13/16 11/14/16 04:57 06:05 White Blood Count 6.8 TH/MM3 Red Blood Count 3.88 MIL/MM3 Hemoglobin 10.8 GM/DL Hematocrit 33.3 % Mean Corpuscular Volume 85.7 FL Mean Corpuscular Hemoglobin 27.8 PG Mean Corpuscular Hemoglobin 32.4 % Concent Red Cell Distribution Width 15.0 % Platelet Count 195 TH/MM3 Mean Platelet Volume 9.1 FL Neutrophils (%) (Auto) 50.7 % Lymphocytes (%) (Auto) 33.3 % Monocytes (%) (Auto) 11.2 % Eosinophils (%) (Auto) 4.1 % Basophils (%) (Auto) 0.7 % Neutrophils # (Auto) 3.4 TH/MM3 Lymphocytes # (Auto) 2.3 TH/MM3 Monocytes # (Auto) 0.8 TH/MM3 Eosinophils # (Auto) 0.3 TH/MM3 Basophils # (Auto) 0.0 TH/MM3 CBC Comment DIFF FINAL Differential Comment Sodium Level 140 MEQ/L 142 MEQ/L Potassium Level 3.4 MEQ/L 3.6 MEQ/L Chloride Level 107 MEQ/L 107 MEQ/L Carbon Dioxide Level 23.8 MEQ/L 25.2 MEQ/L Anion Gap 9 MEQ/L 10 MEQ/L Blood Urea Nitrogen 31 MG/DL 30 MG/DL Creatinine 2.99 MG/DL 3.06 MG/DL Estimat Glomerular Filtration 18 ML/MIN 17 ML/MIN Rate Random Glucose 90 MG/DL 81 MG/DL Calcium Level 8.6 MG/DL 8.9 MG/DL Magnesium Level 2.2 MG/DL Imaging Last Impressions Renal Ultrasound 11/12/16 0000 Signed Impressions: Service Date/Time: Saturday, November 12, 2016 14:34 - CONCLUSION: Small echogenic kidneys consistent with medical renal disease. Rolando Pettit MD Chest X-Ray 11/12/16 0000 Signed Impressions: Service Date/Time: Saturday, November 12, 2016 13:01 - CONCLUSION: Stable chest x-ray. No acute finding is identified. Rolando Peace MD Objective Remarks General: NAD, AAOx3 Chest: CTA bilaterally Cardiac: Bradycardic, regular Abd: +BS, soft ND/NT Ext: No edema A/P Problem List: (1) Uncontrolled hypertension Status: Acute Plan: - comgmt with Cardiology - Pt admitted with uncontrolled HTN with systolic BP over 200 - Pt takes Metoprolol 100mg po BID, Lisinopril 40mg po daily, and HCTZ 25mg po daily at home typically - She has been asymptomatic. - Pt has been notably bradycardic in the ER with HR in the 40-50. Metoprolol held - Hold HCTZ and Lisinopril at this time due to worsening renal function from baseline - Cardiology following. - Pt is currently on Hydralazine 20mg q8h and Norvasc 10mg daily but BP is still fluctuating quite high but with periods of normal BPs. - Telemetry: HR NSR 60-80, but periods of tachyarrhythmias - Holter --> Underlying rhythm is normal sinus, with with 2000 PVCs and many PACs, several episodes of short runs of supraventricular rhythm which appears to be short runs of atrial fibrillation. There were also significant runs of PVCs and short runs of nonsustained ventricular tachycardia. - Dr. Spencer consulted but pt refusing pacemaker and consult was canceled. - 2D echo (11/13) --> Estimated EF 60%, mildly calcified aortic valve with trace regurg, LA is mildly dialed. - anticipate d/c to home later today if BP stabilizes (2) CKD (chronic kidney disease) stage 4, GFR 15-29 ml/min Status: Chronic Plan: - Pt with stage 4 CKD secondary to diabetes and HTN - Labs at admission are slightly higher than baseline, Cr 2.49 - Cr 2.81 (11/11/16) --> Cr 3.08 (11/12/16) --> Cr 2.99 (11/13/16) --> Cr 3.06 () - Renal US --> Small echogenic kidneys consistent with medical renal disease - Pt follows with Dr. Solitario and was offered to consider dialysis, she refuses (3) Diabetes mellitus type 2, diet-controlled Status: Chronic Plan: - Pt is not on any medications at home. - all blood sugar readings are less than 150 - will stop accuchecks and SSI per pts request (4) Hypothyroidism Status: Chronic Plan: - TSH 4.12/free T4 1.16 - Cont. home meds (5) Paroxysmal atrial fibrillation Status: Acute Plan: - Pt with a hx of paroxysmal A. fib after thyroid surgery - Holter Monitor (11/2010) --> NSR, frequent PAC/Occasional PVCs, brief runs of nonsustained atrial tachycardia and sinus bradycardia down to 41 BPM. - Telemetry Assessment and Plan Patient examined. Assessment and plan formulated with Fide Barboza PA-C. I agree with the above.\ daughter present. pt refusing consideration for HD. she is refusing EP cardiology eval or PM. I informed her of risk of life threatening arrhythmias to include bradycardia, afib, svt, VT. Pt says she understood the life threatening risk. she wanted to go home and have a prn for spikes in her bp. f/u with her doctors closely Fide Barboza Nov 14, 2016 11:36 Jacques Duff MD Nov 14, 2016 22:16
[2016-11-14] MEDS ORDERED: AMLO10 PO (11:39)
[2016-11-14] MEDS ORDERED: HYDR10TA23 PO (11:39)
--- NOTE | 2016-11-14 11:41 | HHI.DCPOC ---
Discharge Care Plan Diagnosis: (1) Hypothyroidism (2) Acute on chronic renal insufficiency (3) Paroxysmal atrial fibrillation (4) Uncontrolled hypertension (5) CKD (chronic kidney disease) stage 4, GFR 15-29 ml/min (6) Diabetes mellitus type 2, diet-controlled Goals to Promote Your Health * To prevent worsening of your condition and complications * To maintain your health at the optimal level Directions to Meet Your Goals Take your medications as prescribed Follow your dietary instruction Follow activity as directed Keep your appointments as scheduled Take your immunizations and boosters as scheduled If your symptoms worsen call your PCP, if no PCP go to Urgent Care Center or Emergency Room Smoking is Dangerous to Your Health. Avoid second hand smoke Call the 24-hour hour crisis hotline for domestic abuse at Fide Barboza Nov 14, 2016 11:41
[2016-11-14] MEDS ORDERED: CLON0.1T PO (16:43)
[2016-11-18] MEDS ORDERED: REMOVE OLD PATCH T-DERMAL SCH (10:00)
--- NOTE | 2016-12-06 10:25 | HHI.DS ---
Discharge Summary Admission Date Nov 11, 2016 at 10:26 Discharge Date: Nov 14, 2016 Admitting Diagnosis uncontrolled hypertension, acute on chronic renal insufficiency (1) Uncontrolled hypertension Diagnosis: Principal (2) CKD (chronic kidney disease) stage 4, GFR 15-29 ml/min Diagnosis: Secondary (3) Diabetes mellitus type 2, diet-controlled Diagnosis: Secondary (4) Hypothyroidism Diagnosis: Secondary (5) Paroxysmal atrial fibrillation Diagnosis: Secondary Brief History Ms. Perez is a pleasant 86 y/o female with HTN, Diabetes, CKD, stage IV, and hypothyroidism. She presented to the [place] [facility]09/16 for evaluation of elevated blood pressure. The patient takes Metoprolol 100mg po BID, HCTZ 25mg po daily, and Lisinopril 40mg po daily. She was recently started on Nifedipine , however she states that this medication made her nauseous and she stopped taking it. Yesterday evening the pt happened to check her blood pressure and noticed it was elevated. Her vital signs on arrival showed heart rate 48, blood pressure 262/126, pulse ox 95% on room air, oral temp of 98.1F. The patient was given a dose of hydralazine with improvement in blood pressure to 184/83, however blood pressure again increased to 201/90. Pt was admitted for observation for her persistently elevated BP. There was also concern about possible acute on chronic renal failure. Pts baseline Cr is 2.49. At admission her Cr was 2.95. She has been completely asymptomatic. Denies any chest pain, palpitations, headache, dizziness, or SOB. PE at Discharge General: NAD, AAOx3 Chest: CTA bilaterally Cardiac: Bradycardic, regular Abd: +BS, soft ND/NT Ext: No edema Hospital Course - Pt admitted with uncontrolled HTN with systolic BP over 200 - Pt takes Metoprolol 100mg po BID, Lisinopril 40mg po daily, and HCTZ 25mg po daily at home typically - She has been asymptomatic. - Pt has been notably bradycardic in the ER with HR in the 40-50. Metoprolol held - Hold HCTZ and Lisinopril at this time due to worsening renal function from baseline - Pt is currently on Hydralazine 20mg q8h and Norvasc 10mg daily but BP is still fluctuating quite high but with periods of normal BPs. - Holter --> Underlying rhythm is normal sinus, with with 2000 PVCs and many PACs, several episodes of short runs of supraventricular rhythm which appears to be short runs of atrial fibrillation. There were also significant runs of PVCs and short runs of nonsustained ventricular tachycardia. - Dr. Spencer consulted but pt refusing pacemaker and consult was canceled. - 2D echo (11/13) --> Estimated EF 60%, mildly calcified aortic valve with trace regurg, LA is mildly dialed. - anticipate d/c to home later today if BP stabilizes - Pt with stage 4 CKD secondary to diabetes and HTN - Labs at admission are slightly higher than baseline, Cr 2.49 - Cr 2.81 (11/11/16) --> Cr 3.08 (11/12/16) --> Cr 2.99 (11/13/16) --> Cr 3.06 () - Renal US --> Small echogenic kidneys consistent with medical renal disease - Pt follows with Dr. Solitario and was offered to consider dialysis, she refuses Pt Condition on Discharge: Stable Discharge Disposition: Discharge Home Discharge Instructions DIET: Follow Instructions for: Heart Healthy Diet Activities you can perform: Regular-No Restrictions Follow up Referrals: Nephrology - [address] Solitario PCP Follow-up - [address] Reyes New Medications: Clonidine (Clonidine) 0.1 Mg Tab 0.1 MG PO BID PRN SBP>180, DBP>100, HR>65 #60 Ref 0 TAB Amlodipine (Norvasc) 10 Mg Tab 10 MG PO DAILY Blood Pressure Management #31 TAB Hydralazine (Hydralazine) 10 Mg Tab 20 MG PO Q8HR Blood Pressure Management #93 TAB Continued Medications: Levothyroxine (Synthroid) 125 Mcg Tab 125 MCG PO DAILY Thyroid #30 Ref 0 TAB Pravastatin (Pravastatin) 40 Mg Tab 40 MG PO DAILY Cholesterol Management #30 Ref 0 TAB Discontinued Medications: Hydrochlorothiazide (Hydrochlorothiazide) 25 Mg Tab 25 MG PO DAILY #30 Ref 0 TAB Lisinopril (Lisinopril) 40 Mg Tab 40 MG PO DAILY Blood Pressure Management #30 Ref 0 TAB Metoprolol Tartrate (Metoprolol Tartrate) 100 Mg Tab 100 MG PO BID #60 Ref 0 TAB Potassium Chloride ER (K-Tab) 20 Meq Tab 20 MEQ PO BID Electrolyte Replacement #60 Ref 0 TAB Jacques Duff MD Dec 06, 2016 10:25
== END 2016-11-14 17:32 | disposition home or self-care (01) | DRG 683 ==
LOC: NEPE 01:05 → NEDA 02:52 → NEDH 06:52 → NEPHCDU 12:46 → OBSVTOIN 11-11 10:26
PROVIDERS: ADMIT Hospitalist; ATTEND Hospitalist
DX: I12.9 Hypertensive chronic kidney disease with stage 1 through stage 4 chronic kidney disease, or unspecified chronic kidney disease (principal); N18.4 Chronic kidney disease, stage 4 (severe); E11.22 Type 2 diabetes mellitus with diabetic chronic kidney disease; N17.9 Acute kidney failure, unspecified; I48.0 Paroxysmal atrial fibrillation; R00.1 Bradycardia, unspecified; E03.9 Hypothyroidism, unspecified; D64.9 Anemia, unspecified; E87.6 Hypokalemia; T46.5X5A Adverse effect of other antihypertensive drugs, initial encounter; Z88.6 Allergy status to analgesic agent; Z88.0 Allergy status to penicillin; Z88.2 Allergy status to sulfonamides
CPT/HCPCS: 71010; 76775; 80048; 82948; 83735; 84132; 84439; 84443; 85025; 93005; 93225; 93226; 93306; 96374; G0378; J0360; J7030; J7040

== ENCOUNTER 2017-10-29 06:12 | Observation (INO) | payer MEDICARE ==
[~2017-10-29] VITALS: Ht 170.2 cm; Wt 79.3 kg
[~2017-10-29 06:12] MED LIST changes: -ADAL60TA9 PO; +AMLO10 PO; +CLON0.1T PO; -HYDR-2768 PO; +HYDR10TA23 PO; -K-TA10TA5 PO; +LEVO.125 PO; -LEVO100T60 PO; -LISI-357 PO; -METO100T PO; -PRAV20TA67 PO; +PRAV40TA2 PO; -PRED20 PO; -TAB-TAB PO; -VITA100018 PO; -ZITH500T PO
[2017-10-29] MEDS ORDERED: METOPROLOL TARTRATE 25 MG TAB PO PRN (06:45)
[2017-10-29] MEDS ORDERED: CHLORHEXIDINE GLUCONATE 2 % 1 PACK (2 CLOTHS) TOPICAL PRN (06:45)
[2017-10-29] MEDS ORDERED: SODIUM CHLORID 0.9% 500 ML IV PRN (06:45)
[2017-10-29] MEDS ORDERED: POVIDONE IODINE 5% (ANTISEPSIS KIT) 4 APPLICATIONS EACH NARE PRN (06:45)
[2017-10-29] MEDS ORDERED: LACTATED RINGER'S 1000 ML IV PRN (06:45)
[2017-10-29] MEDS ORDERED: BUPIVACAINE HCL PF 0.5% 30 ML VIAL ONE (06:46)
[2017-10-29] MEDS ORDERED: PROTAMINE SULFATE 50 MG/5 ML VIAL ONE (06:46)
[2017-10-29] MEDS ORDERED: HEPARIN SODIUM - IV 10,000 UNITS/10 ML VIAL ONE (06:46)
[2017-10-29] MEDS ORDERED: VANCOMYCIN HCL 1000 MG VIAL ONE (06:47)
[2017-10-29] MEDS ORDERED: THROMBIN (TOPICAL) 20,000 UNIT SPRAY KIT ONE (06:47)
[2017-10-29] MEDS ORDERED: HEPARIN-NS/PF INJ 500 ML ONE (06:47)
[2017-10-29] MEDS ORDERED: VITA1000 PO (07:10)
[2017-10-29] MEDS ORDERED: FER-15DR PO (07:10)
[2017-10-29] MEDS ORDERED: K-TA10TA PO (07:10)
[2017-10-29] MEDS ORDERED: HYDR-3798 PO (07:10)
[2017-10-29] MEDS ORDERED: MULTTAB67 PO (07:12)
[2017-10-29] MEDS ORDERED: ALLE12TA2 PO (07:12)
--- NOTE | 2017-10-29 07:24 | PD.VS.PN ---
Pre-operative Note Pre-operative diagnosis: near ESRD, need for HD access Planned procedure: R UE brach ax Interval History: Pt has been feeling well, not yet started HD. No F/C/N/V or other interval history that would preclude OR. Labs: pending Blood: none needed Imaging: ultrasound reviewed - no autogenous access options Orders: NPO VANC 1g IV OCTOR Post-operative destination: PACU Operative site marked: Yes Consent: Informed consent has been obtained from Aminta Perez. I have explained the procedure in detail and discussed the risks, benefits, and potential complications. All questions have been answered. Patient contact information: daughter [phone] Mio Tolentino MD Oct 29, 2017 07:24
[2017-10-29] MEDS ORDERED: FAMOTIDINE 20 MG/2 ML VIAL ONE (07:34)
[2017-10-29] MEDS ORDERED: MIDAZOLAM HCL 2 MG/2 ML VIAL ONE (07:34)
[2017-10-29 07:49] LABS: AUTOMATED NEUTROPHIL # 3.4 TH/MM3 (1.8-7.7); BASOPHIL % 0.7 % (0.0-2.0); EOSINOPHIL # 0.1 TH/MM3 (0-0.4); EOSINOPHIL % 2.1 % (0.0-4.0); HEMATOCRIT 27.6 % (35.0-46.0); HEMOGLOBIN 8.9 GM/DL (11.6-15.3); LYMPH % 30.4 % (9.0-44.0); LYMPHOCYTE # 1.8 TH/MM3 (1.0-4.8); MEAN CELL VOLUME 85.3 FL (80.0-100.0); MEAN CORPUSCULAR HEMOGLOBIN 27.6 PG (27.0-34.0); MEAN CORPUSCULAR HGB CONC 32.4 % (32.0-36.0); MEAN PLATELET VOLUME 8.2 FL (7.0-11.0); MONO % 9.2 % (0.0-8.0); MONOCYTE # 0.5 TH/MM3 (0-0.9); NEUT % 57.6 % (16.0-70.0); PLATELET COUNT 181 TH/MM3 (150-450); RED BLOOD COUNT 3.24 MIL/MM3 (4.00-5.30); RED CELL DISTRIBUTION WIDTH 15.2 % (11.6-17.2); WHITE BLOOD COUNT 5.9 TH/MM3 (4.0-11.0)
[2017-10-29 07:58] LABS: PROTHROMBIN TIME - PATIENT 10.1 SEC (9.8-11.6)
[2017-10-29 08:12] LABS: BICARBONATE 20.7 MEQ/L (21.0-32.0); CALCIUM 8.8 MG/DL (8.5-10.1); CREATININE 3.52 MG/DL (0.50-1.00)
[2017-10-29] MEDS ORDERED: SODIUM CHLOR 0.9% 250 ML INJ 250 ML IV ONE (08:30)
--- NOTE | 2017-10-29 09:04 | HHI.PR ---
cc: Mio Tolentino MD; Ada Solitario MD Immediate Post Op Note Procedure Date: Oct 29, 2017 Pre Op Diagnosis: near ESRD, need for HD access Post Op Diagnosis: near ESRD, need for HD access Surgeon: Mio Tolentino Reinforcing Metal Worker(s): none Procedure: R brachial-brachial AVF Findings: 3mm vein 5mm artery Complications: none Specimen(s) removed: none Estimated blood loss: 10mL Anesthesia: LMA Drains: None Fluids: 300mL IVF Patient to: PACU Implant/Devices: SEE IMPLANT LOG (if applicable) Date/Time of Procedure: SEE SURGICAL CARE RECORD Mio Tolentino MD Oct 29, 2017 09:04
[2017-10-29] MEDS ORDERED: DO NOT ADM ANY ANTICOAGULANT DRUGS PRN (10:00)
[2017-10-29] MEDS ORDERED: LACTULOSE SYRUP 20 GM/30 ML CUP PO PRN (10:15)
[2017-10-29] MEDS ORDERED: HYDROmorphone HCL 2 MG TAB PO PRN (10:15)
[2017-10-29] MEDS ORDERED: SENNOSIDES 8.6 MG TAB PO PRN (10:15)
[2017-10-29] MEDS ORDERED: BISACODYL 10 MG SUPP RECTAL PRN (10:15)
[2017-10-29] MEDS ORDERED: cloNIDine HCL 0.1 MG TAB PO PRN (10:15)
[2017-10-29] MEDS ORDERED: MAGNESIUM HYDROXIDE SUSP 30 ML CUP PO PRN (10:15)
[2017-10-29] MEDS ORDERED: ONDANSETRON HCL 4 MG/2 ML VIAL IV PUSH PRN (10:30)
[2017-10-29] MEDS ORDERED: DEXAMETHASONE SOD PHOS 4 MG/ML VIAL ONE (11:07)
[2017-10-29] MEDS ORDERED: MORPHINE SULFATE 2 MG/ML INJ IV PUSH PRN (11:15)
[2017-10-29] MEDS ORDERED: DEXAMETHASONE SOD PHOS 4 MG/ML VIAL IV PUSH ONE (11:45)
[2017-10-29] MEDS ORDERED: LIDOCAINE HCL 1% PF 5 ML SYRINGE OTHER ONE (12:00)
[2017-10-29] MEDS ORDERED: PROPOFOL 200 MG/20 ML AMP IV ONE (12:00)
[2017-10-29] MEDS ORDERED: ePHEDrine/NS 25 MG/5 ML SYRINGE IV ONE (12:00)
[2017-10-29] MEDS ORDERED: ONDANSETRON HCL 4 MG/2 ML VIAL IV ONE (12:00)
[2017-10-29] MEDS: hydrALAZINE HCL 10 MG TAB PO SCH ×2 (14:00→18:11)
[2017-10-29 16:00] VITALS: BP 152/70; PULSE 72; RESP 18; TEMP 97.7; O2SAT 95
[2017-10-29 20:00] VITALS: BP 135/63; PULSE 73; RESP 18; TEMP 97.1; O2SAT 96
[2017-10-29] MEDS: POTASSIUM CHLORIDE 10 MEQ CONTROLLED RELEASE TAB PO SCH (20:16)
[2017-10-29] MEDS: DOCUSATE SODIUM 50 MG/SENNA 8.6 MG TAB PO SCH (20:16)
[2017-10-29 21:03] VITALS: O2SAT 97
[2017-10-30] MEDS ORDERED: LEVOTHYROXINE SODIUM 125 MCG TAB PO SCH (06:00)
--- NOTE | 2017-10-30 06:34 | MP ---
cc: SHANTI TOLENTINO MD DATE OF SURGERY 10/29/2017 PREOPERATIVE DIAGNOSIS Near end-stage renal disease. Needs dialysis access. POSTOPERATIVE DIAGNOSIS Near end-stage renal disease. Needs dialysis access. PROCEDURE Right brachial-brachial arteriovenous fistula. ATTENDING SURGEON Shanti Tolentino MD IT SYSTEMS MANAGER None. ANESTHESIA General. INDICATIONS Ms. Perez is an 87-year-old lady with near end-stage renal disease. She is not on dialysis. Preoperative imaging showed she had no adequate autologous vein. However, intraoperatively she had a 3-4 mm brachial vein that was used for an autogenous access. DESCRIPTION OF PROCEDURE Informed consent was obtained from the patient. She was taken to the operating room and placed supine on the operating room table. An appropriate time-out was taken to ensure the identify of the patient, the operative site and planned procedure. The administration of 1 gram of vancomycin was initiated prior to the skin incision, will be discontinued after a single preoperative dose. Vancomycin was chosen because of the patient's PENICILLIN ALLERGY. Everyone in the room agreed with the time-out and we proceeded. Her right arm was prepped and draped. Incision was made over the mid-distal antecubital area, carried down through the subcutaneous tissue with electrocautery. The brachial artery was identified. The brachial vein was identified too. The brachial artery was 5 mm, the brachial vein was about 3-4 mm. The patient was systemically heparinized. The distal aspect of the brachial vein was clamped with a right-angle clamp and the vein was transected. It was spatulated. The distal end was oversewn with 3-0 silk. Proximal and distal control of the brachial artery was obtained with profunda clamps and a longitudinal arteriotomy was made with an 11 blade, extended with Lucio scissors. The vein was sewn to the artery in end-to-side manner with a running 6-0 Prolene sutures. At the completion, it was flushed and noted to be hemostatic. The vein was mobilized cephalad through the incision and noted to have a reasonable thrill. There was a nice Doppler signal at the wrist. The heparin was reversed with Protamine. The wound was infiltrated with Marcaine and closed with 2-0 Polysorb, 3-0 Polysorb and 4-0 Monocryl. The sponge and needle counts were correct at the end of the case. I was present and scrubbed and performed the entire procedure. MD DARLING Turner/RHONA /1:30 PM /6:08 AM
--- NOTE | 2017-10-30 07:25 | PD.VS.PN ---
Subjective POD #: 1 Procedure(s): R BB AVF Subjective/Hospital Course doing well, pain controlled hand ok Objective Vitals/I&O Date Time Temp Pulse Resp B/P (MAP) Pulse Ox O2 Delivery O2 Flow Rate FiO2 10/29/17 21:03 97 21 10/29/17 20:00 97.1 73 18 135/63 (87) 96 10/29/17 16:00 97.7 72 18 152/70 (97) 95 10/29/17 14:20 98.0 65 19 161/72 (101) 95 Room Air 10/29/17 13:46 65 19 162/76 (104) 93 Room Air 10/29/17 13:00 64 19 151/72 (98) 93 Room Air 10/29/17 12:00 61 19 153/71 (98) 97 Room Air 10/29/17 11:30 62 18 152/72 (98) 95 Room Air 10/29/17 11:00 66 19 156/72 (100) 95 Room Air 10/29/17 10:30 66 17 150/76 (100) 96 Room Air 10/29/17 10:15 66 17 156/74 (101) 95 Room Air 10/29/17 10:00 67 17 150/76 (100) 97 Room Air 10/29/17 09:45 70 17 137/76 (96) 97 Room Air 10/29/17 09:30 68 17 160/78 (105) 97 Room Air 10/29/17 09:14 97.6 68 17 151/72 (98) 99 Nasal Cannula 3 10/30/17 10/30/17 10/30/17 07:00 15:00 23:00 Intake Total 360 ml Balance 360 ml Exam: L UE incision c/d/i + thrill palpable radial pulse good hand strength Laboratory Laboratory Tests Test 10/29/17 07:25 White Blood Count 5.9 Red Blood Count 3.24 Hemoglobin 8.9 Hematocrit 27.6 Mean Corpuscular Volume 85.3 Mean Corpuscular Hemoglobin 27.6 Mean Corpuscular Hemoglobin Concent 32.4 Red Cell Distribution Width 15.2 Platelet Count 181 Mean Platelet Volume 8.2 Neutrophils (%) (Auto) 57.6 Lymphocytes (%) (Auto) 30.4 Monocytes (%) (Auto) 9.2 Eosinophils (%) (Auto) 2.1 Basophils (%) (Auto) 0.7 Neutrophils # (Auto) 3.4 Lymphocytes # (Auto) 1.8 Monocytes # (Auto) 0.5 Eosinophils # (Auto) 0.1 Basophils # (Auto) 0.0 CBC Comment DIFF FINAL Differential Comment Prothrombin Time 10.1 Prothromb Time International Ratio 1.0 Blood Urea Nitrogen 37 Creatinine 3.52 Random Glucose 90 Calcium Level 8.8 Sodium Level 141 Potassium Level 3.5 Chloride Level 111 Carbon Dioxide Level 20.7 Anion Gap 9 Estimat Glomerular Filtration Rate 15 Assessment and Plan Plan POD#1 s/p R BB AVF Access patent, looks good Discharge Planning today with RTC 2-3 weeks Mio Tolentino MD Oct 30, 2017 07:25
[2017-10-30 07:54] VITALS: BP 153/70; PULSE 66; RESP 18; TEMP 96.3; O2SAT 96
[2017-10-30 08:02] LABS: BICARBONATE 22.9 MEQ/L (21.0-32.0); CALCIUM 8.3 MG/DL (8.5-10.1); CREATININE 3.52 MG/DL (0.50-1.00)
[2017-10-30] MEDS ORDERED: PERC5TAB12 PO (08:55)
[2017-10-30 08:56] VITALS: O2SAT 96
[2017-10-30] MEDS ORDERED: PRAVASTATIN SOD 40 MG TAB PO SCH (09:00)
[2017-10-30] MEDS ORDERED: FERROUS SULFATE 15 MG/ML ELEMENTAL IRON 50 ML BTL PO SCH (09:00)
[2017-10-30] MEDS ORDERED: FERROUS SULFATE 300 MG /5ML UDC PO SCH (09:00)
--- NOTE | 2017-10-30 09:14 | PD.VS.DC ---
Discharge Summary Admission Date: Oct 29, 2017 at 10:14 Discharge Date: Oct 30, 2017 Admission Diagnosis: (1) AVF (arteriovenous fistula) (2) Acute on chronic renal insufficiency Discharge Diagnosis: (1) AVF (arteriovenous fistula) ICD Codes: I77.0 - Arteriovenous fistula, acquired (2) Acute on chronic renal insufficiency ICD Codes: N28.9 - Disorder of kidney and ureter, unspecified; N18.9 - Chronic kidney disease, unspecified Status: Acute Brief History from admission Ms. Perez is an 87/F with chronic kidney disease who is near ESRD, need for HD access Pt is not yet on hemodialysis. Procedure(s): R brachial-brachial AVF Significant Findings GENERAL: A&OX3,NAD,GCS15 SKIN: Warm and dry/ R UE incision I/C/D with surgical glue closure/ NO S/D/R CARDIOVASCULAR: Regular rate and rhythm without murmurs, gallops, or rubs. RESPIRATORY: Breath sounds equal bilaterally. No accessory muscle use. Palpable R/L radial pulses present Palpable thrill near RUE AVF noted Pt w/o hand pain/paresthesias UE warm with motor intact Pt w/ Equal rubber compounder mixer strength Laboratory Tests Test 10/29/17 07:25 10/30/17 07:20 Red Blood Count 3.24 MIL/MM3 (4.00-5.30) Hemoglobin 8.9 GM/DL (11.6-15.3) Hematocrit 27.6 % (35.0-46.0) Monocytes (%) (Auto) 9.2 % (0.0-8.0) Blood Urea Nitrogen 37 MG/DL (7-18) 38 MG/DL (7-18) Creatinine 3.52 MG/DL (0.50-1.00) 3.52 MG/DL (0.50-1.00) Chloride Level 111 MEQ/L (98-107) 110 MEQ/L (98-107) Carbon Dioxide Level 20.7 MEQ/L (21.0-32.0) Estimat Glomerular Filtration Rate 15 ML/MIN (>89) 15 ML/MIN (>89) Calcium Level 8.3 MG/DL (8.5-10.1) Hospital Course: Ms. Perez is an 87/F with chronic kidney disease who is near ESRD, need for HD access Pt is not yet on hemodialysis. Pt S/P RIGHT Brachial- Brachial AVF POD 1- doing well, incision intact, denies hand pain Pt w/o complication Arranged Post op follow up in 2-3 weeks Allergies Coded Allergies Type Severity Reaction Last Updated Verified Sulfa (Sulfonamide Antibiotics) Allergy Severe RASH 10/29/17 No aspirin Allergy Severe CHEST PAIN 10/29/17 No penicillin G Adverse Reaction Severe DIARRHEA 10/29/17 No Uncoded Allergies Type Severity Reaction Last Updated Verified CITRUS Allergy Severe Anaphylaxis 11/23/10 10/28/17 10/28/17 10/29/17 10/29/17 10/30/17 10/30/17 06:00 18:00 06:00 18:00 06:00 18:00 Intake Total 590 ml 360 ml Output Total 560 ml Balance 30 ml 360 ml Intake Oral 290 ml 360 ml Other 300 ml Output Urine Total 550 ml Estimated Blood Loss 10 ml # Voids 4 # Bowel Movements 0 Laboratory Tests Test 10/29/17 07:25 10/30/17 07:20 White Blood Count 5.9 TH/MM3 Red Blood Count 3.24 MIL/MM3 Hemoglobin 8.9 GM/DL Hematocrit 27.6 % Mean Corpuscular Volume 85.3 FL Mean Corpuscular Hemoglobin 27.6 PG Mean Corpuscular Hemoglobin Concent 32.4 % Red Cell Distribution Width 15.2 % Platelet Count 181 TH/MM3 Mean Platelet Volume 8.2 FL Neutrophils (%) (Auto) 57.6 % Lymphocytes (%) (Auto) 30.4 % Monocytes (%) (Auto) 9.2 % Eosinophils (%) (Auto) 2.1 % Basophils (%) (Auto) 0.7 % Neutrophils # (Auto) 3.4 TH/MM3 Lymphocytes # (Auto) 1.8 TH/MM3 Monocytes # (Auto) 0.5 TH/MM3 Eosinophils # (Auto) 0.1 TH/MM3 Basophils # (Auto) 0.0 TH/MM3 CBC Comment DIFF FINAL Differential Comment Prothrombin Time 10.1 SEC Prothromb Time International Ratio 1.0 RATIO Blood Urea Nitrogen 37 MG/DL 38 MG/DL Creatinine 3.52 MG/DL 3.52 MG/DL Random Glucose 90 MG/DL 89 MG/DL Calcium Level 8.8 MG/DL 8.3 MG/DL Sodium Level 141 MEQ/L 144 MEQ/L Potassium Level 3.5 MEQ/L 3.9 MEQ/L Chloride Level 111 MEQ/L 110 MEQ/L Carbon Dioxide Level 20.7 MEQ/L 22.9 MEQ/L Anion Gap 9 MEQ/L 11 MEQ/L Estimat Glomerular Filtration Rate 15 ML/MIN 15 ML/MIN Orders Procedure Category Date Status Time Lactated Ringer's MED 10/29/17 In Process 1000 Ml Inj (Lr 1000 M 06:45 Sodium Chlorid 0.9% MED 10/29/17 In Process 500 Ml Inj (Ns 500 M 06:45 Metoprolol Tartrate MED 10/29/17 In Process (Lopressor) 06:45 Povidone Iod 5% MED 10/29/17 In Process Antisepsis Kit 06:45 Chlorhexidine 2% MED 10/29/17 In Process Cloth (Chlorhexidine 06:45 Complete Blood Count LAB 10/29/17 Complete With Diff 06:44 Basic Metabolic Panel LAB 10/29/17 Complete (Bmp) 06:44 Prothrombin Time / LAB 10/29/17 Complete Inr (Pt) 06:44 Type And Screen BBK 10/29/17 Complete 06:44 Protamine Sulfate Inj MED 10/29/17 Complete (Protamine Sulfate 06:46 Heparin Inj (Heparin MED 10/29/17 Complete Inj) 06:46 Bupivacaine Pf 0.5% MED 10/29/17 Complete Inj (Marcaine Pf 0.5 06:46 Vancomycin Inj MED 10/29/17 Complete (Vancomycin Inj) 06:47 Thrombin Top [place] MED 10/29/17 Complete (Thrombin Top [place]) 06:47 Heparin-Ns/Pf Inj MED 10/29/17 Complete (Heparin-Ns/Pf Inj) 06:47 Midazolam Inj (Versed MED 10/29/17 Complete Inj) 07:34 Famotidine Inj MED 10/29/17 Complete (Pepcid Inj) 07:34 Sodium Chlor 0.9% 250 MED 10/29/17 Complete Ml Inj (Ns 250 Ml 08:30 Fentanyl Inj MED 10/29/17 Complete (Fentanyl Inj) 09:24 Misc Nursing MED 10/29/17 In Process Information 10:00 Place In Observation ADMITTING 10/29/17 Transmitted Vital Signs (Adult) EAN 10/29/17 In Process 10:07 Notify Parameters EAN 10/29/17 In Process 10:07 Precautions EAN 10/29/17 In Process 10:07 Diet Renal DIET 10/29/17 Transmitted Lunch Basic Metabolic Panel LAB 10/30/17 Complete (Bmp) 06:00 Consult Nephrology CONS 10/29/17 Transmitted Oxycodone (Roxicodone) MED 10/29/17 In Process 10:15 Hydromorphone MED 10/29/17 In Process (Dilaudid) 10:15 Docusate Sodium-Senna MED 10/29/17 In Process (Lily-Colace) 21:00 Magnesium Hydroxide MED 10/29/17 In Process Liq (Milk Of Magnesi 10:15 Sennosides (Senokot) MED 10/29/17 In Process 10:15 Bisacodyl Supp MED 10/29/17 In Process (Dulcolax Supp) 10:15 Lactulose Liq MED 10/29/17 In Process (Lactulose Liq) 10:15 Amlodipine (Norvasc) MED 10/30/17 In Process 09:00 Clonidine (Catapres) MED 10/29/17 In Process 10:15 Hydralazine MED 10/29/17 In Process (Apresoline) 13:00 Levothyroxine MED 10/30/17 In Process (Synthroid) 06:00 Potassium Chloride MED 10/29/17 In Process (Kcl) 21:00 Pravastatin MED 10/30/17 In Process (Pravachol) 09:00 Ondansetron Inj MED 10/29/17 In Process (Zofran Inj) 10:30 (Hub Use Only)Inp Phy CONS 10/29/17 Transmitted Cons/Ref Dexamethasone Inj MED 10/29/17 Complete (Decadron Inj) 11:07 Morphine Inj MED 10/29/17 In Process (Morphine Inj) 11:15 Dexamethasone Inj MED 10/29/17 Complete (Decadron Inj) 11:45 Sds Pre Op Care [facility] 10/29/17 Complete Anticoagulant Alert EAN 10/29/17 In Process ^ Sling EAN 10/29/17 In Process Resp Oxygen Alirio C RSP 10/29/17 Logged Titrat 1-4 L Class Iv Pacu Ea 30 [facility] 10/29/17 Complete MIN General/Pacu [facility] 10/29/17 Complete Post Anesthesia Oxygen [facility] 10/29/17 Complete Pacu Med Holding [facility] 10/29/17 Complete Hourly Ferrous Sulfate Liq MED 10/30/17 In Process (Ferrous Sulfate Liq 09:00 Attending Discharge DISCHARGE 10/30/17 Transmitted Order Vital Signs Date Time Temp Pulse Resp B/P (MAP) Pulse Ox O2 Delivery O2 Flow Rate FiO2 10/30/17 08:56 96 10/30/17 07:54 96.3 66 18 153/70 (97) 96 10/29/17 21:03 97 21 10/29/17 20:00 97.1 73 18 135/63 (87) 96 10/29/17 16:00 97.7 72 18 152/70 (97) 95 10/29/17 14:20 98.0 65 19 161/72 (101) 95 Room Air 10/29/17 13:46 65 19 162/76 (104) 93 Room Air 10/29/17 13:00 64 19 151/72 (98) 93 Room Air 10/29/17 12:00 61 19 153/71 (98) 97 Room Air 10/29/17 11:30 62 18 152/72 (98) 95 Room Air 10/29/17 11:00 66 19 156/72 (100) 95 Room Air 10/29/17 10:30 66 17 150/76 (100) 96 Room Air 10/29/17 10:15 66 17 156/74 (101) 95 Room Air 10/29/17 10:00 67 17 150/76 (100) 97 Room Air 10/29/17 09:45 70 17 137/76 (96) 97 Room Air 10/29/17 09:30 68 17 160/78 (105) 97 Room Air 10/29/17 09:14 97.6 68 17 151/72 (98) 99 Nasal Cannula 3 10/29/17 07:22 97.9 70 18 149/66 (93) 100 Discharge Condition: Good Discharge Disposition: Discharge Home Discharge Instructions: Maintain a renal diet Activities to RIGHT upper extremity as tolerated No heavy lifting over a gallon of milk (RIGHT upper extremity) for 2W Right Arm precautions- NO B/P/ Lab draws to Right upper extremity Leave incision to Right upper extremity open to air Do not apply any creams or ointments to your incision site as it may loosen the surgical glue Call the office to report any new onset redness, drainage, swelling, fever or chills MAY Shower then pat dry incision site NO tub baths/swimming until incision is fully healed Post op follow up in 2-3 W CALL the office with any questions or concerns Mala BLAKE [facility] [phone] Any questions or concerns: Call [facility] [phone] Mala Andre Oct 30, 2017 09:14
[2017-10-30] MEDS: DOCUSATE SODIUM 50 MG/SENNA 8.6 MG TAB PO SCH (09:48)
[2017-10-30] MEDS: POTASSIUM CHLORIDE 10 MEQ CONTROLLED RELEASE TAB PO SCH (09:48)
[2017-10-30] MEDS: hydrALAZINE HCL 10 MG TAB PO SCH (09:49)
== END 2017-10-30 11:08 | disposition home or self-care (01) ==
LOC: HSDC 06:12 → HSDI 10:14 → N07A 15:00
PROVIDERS: ADMIT Surgery; ATTEND Surgery
DX: N18.6 End stage renal disease (principal); Z99.2 Dependence on renal dialysis
CPT/HCPCS: 01844; 36821; 76937; 80048; 85025; 85610; 86850; 86900; 86901; G0378; J1644; J2250; J2405; J2720; J3010; J3370; J7050; J1100

== ENCOUNTER → 2018-01-17 | Day surgery (SDC) | payer MEDICARE ==
[~2018-01-17] MED LIST changes: +ALLE12TA2 PO; +CHLORHEXIDINE GLUCONATE 2 % 1 PACK (2 CLOTHS) TOPICAL PRN; +FER-15DR PO; +HYDR-3798 PO; -HYDR10TA23 PO; +INSULIN HUMAN REGULAR 1,000 UNITS/10 ML VIAL SQ PRN; +K-TA10TA PO; +LACTATED RINGER'S 1000 ML IV PRN; +METOPROLOL TARTRATE 25 MG TAB PO PRN; +MULTTAB67 PO; +PERC5TAB12 PO; +POVIDONE IODINE 5% (ANTISEPSIS KIT) 4 APPLICATIONS EACH NARE PRN; +SODIUM CHLORID 0.9% 500 ML IV PRN; +VITA1000 PO
== END | disposition home or self-care (01) ==
LOC: HSDC 08:42
PROVIDERS: ATTEND Surgery
DX: N18.6 End stage renal disease (principal); Z53.9 Procedure and treatment not carried out, unspecified reason
CPT/HCPCS: 99211; G0463

== ENCOUNTER 2018-02-07 09:54 | Emergency (ER) | payer MEDICARE ==
[~2018-02-07 09:54] MED LIST changes: -CHLORHEXIDINE GLUCONATE 2 % 1 PACK (2 CLOTHS) TOPICAL PRN; -CLON0.1T PO; -FER-15DR PO; -HYDR-3798 PO; +HYDR-3799 PO; -INSULIN HUMAN REGULAR 1,000 UNITS/10 ML VIAL SQ PRN; -K-TA10TA PO; -LACTATED RINGER'S 1000 ML IV PRN; -METOPROLOL TARTRATE 25 MG TAB PO PRN; -PERC5TAB12 PO; +POTA10SO12 PO; -POVIDONE IODINE 5% (ANTISEPSIS KIT) 4 APPLICATIONS EACH NARE PRN; -SODIUM CHLORID 0.9% 500 ML IV PRN
[2018-02-07 10:28] VITALS: BP 138/65; PULSE 81; RESP 18; TEMP 97.8; O2SAT 99
[2018-02-07 10:49] VITALS: BP 132/70; PULSE 78; RESP 17; TEMP 98.3; O2SAT 99
[2018-02-07 11:20] LABS: AUTOMATED NEUTROPHIL # 3.7 TH/MM3 (1.8-7.7); BASOPHIL # 0.1 TH/MM3 (0-0.2); EOSINOPHIL % 0.2 % (0.0-4.0); HEMATOCRIT 30.3 % (35.0-46.0); HEMOGLOBIN 9.9 GM/DL (11.6-15.3); LYMPH % 19.3 % (9.0-44.0); LYMPHOCYTE # 1.1 TH/MM3 (1.0-4.8); MEAN CELL VOLUME 84.7 FL (80.0-100.0); MEAN CORPUSCULAR HEMOGLOBIN 27.6 PG (27.0-34.0); MEAN CORPUSCULAR HGB CONC 32.6 % (32.0-36.0); MEAN PLATELET VOLUME 8.1 FL (7.0-11.0); MONOCYTE # 0.6 TH/MM3 (0-0.9); NEUT % 68.5 % (16.0-70.0); PLATELET COUNT 217 TH/MM3 (150-450); RED BLOOD COUNT 3.58 MIL/MM3 (4.00-5.30); RED CELL DISTRIBUTION WIDTH 14.9 % (11.6-17.2); WHITE BLOOD COUNT 5.4 TH/MM3 (4.0-11.0)
--- NOTE | 2018-02-07 11:20 | PD ---
HPI . Weakness Chief Complaint: General Weakness Time Seen by Provider: 10:39 Travel History International Travel<30 days: No Contact w/Intl Traveler<30days: No Traveled to known affect area: No History of Present Illness HPI This patient presents with a chief complaint of feeling weak. Onset of symptoms was at 7 AM. She basically describes lightheadedness. She reports no other symptoms. She has not noted any modifying factors. Symptoms are mild. Context is that she was supposed to go for completion of her dialysis shunt this morning but felt too weak to go. PFSH Past Medical History Anemia: Yes Arthritis: Yes Asthma: No Atrial Fibrillation: Yes Anxiety: No Depression: No Heart Rhythm Problems: Yes (A FIB) Cardiovascular Problems: Yes (HEART MURMUR) High Cholesterol: Yes Chemotherapy: No Congestive Heart Failure: No COPD: No Diabetes: No Diminished Hearing: No Endocrine: Yes Genitourinary: No Hepatitis: No Hiatal Hernia: No Hypertension: Yes (and chol) Immune Disorder: No Medical other: Yes (ESRD STAGE 4 ) Musculoskeletal: Yes (BILAT KNEE PAIN) Neurologic: No Psychiatric: No Reproductive: No Respiratory: No Radiation Therapy: No Sleep Apnea: No Thyroid Disease: Yes (HYPER) Tetanus Vaccination: > 5 Years Influenza Vaccination: Yes PNEUMOCCOCAL Vaccine (Year): 2010 Menopausal: Yes : 2 Para: 2 Past Surgical History Abdominal Surgery: Yes (duc 1994) AICD: No Body Medical Devices: NONE Cardiac Surgery: No Cholecystectomy: Yes Ear Surgery: No Endocrine Surgery: No Eye Surgery: No Genitourinary Surgery: No Gynecologic Surgery: No Oral Surgery: No Pacemaker: No Thoracic Surgery: No Social History Alcohol Use: No Tobacco Use: No Substance Use: No Allergies-Medications (Allergen,Severity, Reaction): Coded Allergies: Sulfa (Sulfonamide Antibiotics) (Verified Allergy, Severe, RASH, 02/06/18) aspirin (Verified Allergy, Severe, CHEST PAIN, 02/06/18) penicillin G (Verified Adverse Reaction, Severe, DIARRHEA, 02/06/18) Uncoded Allergies: CITRUS (Allergy, Severe, Anaphylaxis, 11/23/10) Reported Meds & Prescriptions Reported Meds & Active Scripts Active Norvasc (Amlodipine Besylate) 10 Mg Tab 10 Mg PO DAILY Reported Hydralazine HCl 25 Mg Tablet 50 Mg PO TID Potassium Chloride Liq (Potassium Chloride) 20 Meq/15 Ml Soln 20 Meq PO DAILY Multiple Vitamin 1 Tab 1 Tab PO DAILY Jenny-D 12 Hour Allergy (Fexofenadine-Pseudoephedrine ER 12 HR) 60-120 Mg Beba 1 Tab PO BID PRN Vitamin D-1000 (Cholecalciferol) 1,000 Unit Tab 1,000 Units PO DAILY Pravastatin 40 Mg Tab 40 Mg PO DAILY Synthroid (Levothyroxine Sodium) 125 Mcg Tab 125 Mcg PO DAILY Review of Systems Except as stated in HPI: all other systems reviewed are Neg General / Constitutional: No: Fever, Chills HENT: Positive: Lightheadedness, No: Headaches, Vertigo, Sore Throat, Rhinorrhea, Congestion Cardiovascular: No: Chest Pain or Discomfort Respiratory: No: Cough, Shortness of Breath Gastrointestinal: No: Nausea, Vomiting, Diarrhea Genitourinary: No: Urgency, Frequency, Dysuria Neurologic: Positive: Weakness Physical Exam Narrative GENERAL: Awake and alert and in no acute distress. SKIN: warm/dry. HEAD: Normocephalic. Atraumatic. EYES: Pupils equal and round. No scleral icterus. No injection or drainage. ENT: No nasal bleeding or discharge. Mucous membranes pink and moist. NECK: Trachea midline. Full range of motion without pain.. CARDIOVASCULAR: Irregular rhythm. Controlled rate. Systolic ejection murmur. RESPIRATORY: No accessory muscle use. Clear to auscultation. Breath sounds equal bilaterally. GASTROINTESTINAL: Abdomen soft. Nontender. Bowel sounds present. Nondistended. MUSCULOSKELETAL: No obvious deformities. NEUROLOGICAL: Awake and alert. No obvious cranial nerve deficits. Motor grossly within normal limits. Normal speech. PSYCHIATRIC: Appropriate mood and affect; insight and judgment normal. Data Data Last Documented VS Vital Signs Date Time Temp Pulse Resp B/P (MAP) Pulse Ox O2 Delivery O2 Flow Rate FiO2 02/07/18 10:49 98.3 78 17 132/70 (90) 99 Room Air Orders Orders ^ Saline Lock (02/07/18 10:40) Basic Metabolic Panel (Bmp) (02/07/18 10:40) Complete Blood Count With Diff (02/07/18 10:40) Urinalysis - C+S If Indicated (02/07/18 10:40) Labs Laboratory Tests Test 02/07/18 11:00 White Blood Count 5.4 TH/MM3 Red Blood Count 3.58 MIL/MM3 Hemoglobin 9.9 GM/DL Hematocrit 30.3 % Mean Corpuscular Volume 84.7 FL Mean Corpuscular Hemoglobin 27.6 PG Mean Corpuscular Hemoglobin Concent 32.6 % Red Cell Distribution Width 14.9 % Platelet Count 217 TH/MM3 Mean Platelet Volume 8.1 FL Neutrophils (%) (Auto) 68.5 % Lymphocytes (%) (Auto) 19.3 % Monocytes (%) (Auto) 11.0 % Eosinophils (%) (Auto) 0.2 % Basophils (%) (Auto) 1.0 % Neutrophils # (Auto) 3.7 TH/MM3 Lymphocytes # (Auto) 1.1 TH/MM3 Monocytes # (Auto) 0.6 TH/MM3 Eosinophils # (Auto) 0.0 TH/MM3 Basophils # (Auto) 0.1 TH/MM3 CBC Comment DIFF FINAL Differential Comment Urine Color LIGHT-YELLOW Urine Turbidity CLEAR Urine pH 6.0 Urine Specific [place] 1.008 Urine Protein 100 mg/dL Urine Glucose (UA) NEG mg/dL Urine Ketones NEG mg/dL Urine Occult Blood NEG Urine Nitrite NEG Urine Bilirubin NEG Urine Urobilinogen LESS THAN 2.0 MG/DL Urine Leukocyte Esterase NEG Urine RBC LESS THAN 1 /hpf Urine WBC 1 /hpf Urine Squamous Epithelial Cells 1 /hpf Urine Mucus FEW /lpf Microscopic Urinalysis Comment CULT NOT INDICATED Blood Urea Nitrogen 41 MG/DL Creatinine 3.81 MG/DL Random Glucose 109 MG/DL Calcium Level 9.5 MG/DL Sodium Level 141 MEQ/L Potassium Level 3.5 MEQ/L Chloride Level 108 MEQ/L Carbon Dioxide Level 23.6 MEQ/L Anion Gap 9 MEQ/L Estimat Glomerular Filtration Rate 14 ML/MIN [facility] Medical Decision Making Medical Screen Exam Complete: Yes Emergency Medical Condition: Yes Differential Diagnosis Differential diagnosis of weakness includes but is not limited to infection, CVA , electrolyte disturbance, renal failure, hypoglycemia Narrative Course This patient presents complaining with generalized weakness. She does not have any other associated symptoms other than feeling lightheaded. CBC, BMP and UA are in process. CBC & BMP Diagram 02/07/18 11:00 Calcium Level 9.5 UA is negative for infection I suspect that this patient feels poorly because of her renal disease. She will be discharged with instructions to follow-up as previously directed for completion of her dialysis shunt so that she can start dialysis. Diagnosis Primary Impression: Weakness Additional Impression: Renal failure Qualified Codes: N18.5 - Chronic kidney disease, stage 5 Patient Instructions: Chronic Kidney Disease (DC), General Instructions Disposition: 01 DISCHARGE HOME Condition: Stable Cierra Hudson MD Feb 07, 2018 11:20
[2018-02-07 11:32] LABS: BILIRUBIN, URINE NEG (NEG); BLOOD, URINE NEG (NEG); GLUCOSE,URINE NEG (NEG); KETONE, URINE NEG (NEG); MUCUS URINE FEW /lpf (OCC); NITRITE,URINE NEG (NEG); SQUAMOUS EPITHELIAL CELL URINE 1 /hpf (0-5); URINE COLOR LIGHT-YELLOW (YELLW/STRAW); URINE LEUKOCYTE ESTERASE NEG (NEG)
[2018-02-07 11:45] LABS: BICARBONATE 23.6 MEQ/L (21.0-32.0); CALCIUM 9.5 MG/DL (8.5-10.1); CREATININE 3.81 MG/DL (0.50-1.00)
[2018-02-07 12:06] VITALS: BP 132/76; TEMP 98
== END 2018-02-07 12:06 | disposition home or self-care (01) ==
LOC: NEPC 09:54
DX: R53.1 Weakness (principal); N18.5 Chronic kidney disease, stage 5; R42 Dizziness and giddiness; E07.9 Disorder of thyroid, unspecified; I12.0 Hypertensive chronic kidney disease with stage 5 chronic kidney disease or end stage renal disease; E78.00 Pure hypercholesterolemia, unspecified; Z86.79 Personal history of other diseases of the circulatory system; Z87.39 Personal history of other diseases of the musculoskeletal system and connective tissue
CPT/HCPCS: 80048; 81001; 85025; 99283

== ENCOUNTER 2018-03-04 08:12 | Observation (INO) | END 2018-03-05 12:30 | disposition home or self-care (01) | DX: I12.0 Hypertensive chronic kidney disease with stage 5 chronic kidney disease or end stage renal disease (principal); N18.6 End stage renal disease; R94.31 Abnormal electrocardiogram [ECG] [EKG]; I77.0 Arteriovenous fistula, acquired; Z99.2 Dependence on renal dialysis | CPT/HCPCS: 01844; 36833; 80048; 85025; 85610; 85730; 86850; 86900; 86901; 93005; 96372; C1768; G0378; J1644; J2405; J2720; J3010; J3370; J7040 ==